=== PATIENT | male | born 1970 | race Caucasian/White ===

== ENCOUNTER 2016-12-07 11:42 | Emergency (ER) | payer OTHER ==
[~2016-12-07] VITALS: Ht 193 cm; Wt 153.3 kg
[2016-12-07] MEDS ORDERED: METF1000 PO (11:53)
[2016-12-07] MEDS ORDERED: IBUP80TA PO (11:53)
[2016-12-07] MEDS ORDERED: HYDR-3713 PO (11:53)
[2016-12-07] MEDS ORDERED: GLIP5TAB8 PO (11:53)
[2016-12-07] MEDS ORDERED: ONDANSETRON 4MG/2ML VIAL (J2405) IV ONE (12:45)
[2016-12-07] MEDS ORDERED: NS 1,000 ML IV ONE (12:45)
[2016-12-07] MEDS ORDERED: KETOROLAC 30 MG/ML VIAL (J1885) IV ONE (12:45)
[2016-12-07 13:11] LABS: BASO % 0.5 % (0.0-1.0); EOS # 0.1 K/mm3 (0.0-0.50); EOS % 1.6 % (0.0-3.0); LARGE UNSTAINED CELL # 0.1 K/mm3 (0.0-0.4); LARGE UNSTAINED CELL % 1.2 % (0.0-4.0); LYMPH # 1.4 K/mm3 (1.5-4.5); LYMPH % 25.3 % (24.0-44.0); MEAN CORPUSCULAR HEMOGLOBIN 30.2 pg (27.0-33.0); MEAN CORPUSCULAR HGB CONC 33.4 g/dl (32.0-36.5); MEAN CORPUSCULAR VOLUME 90.3 fl (80.0-96.0); MONO # 0.3 K/mm3 (0.0-0.8); MONO % 5.7 % (0.0-5.0); NEUTROPHILS # 3.7 K/mm3 (1.8-7.7); NEUTROPHILS % 65.6 % (36.0-66.0); PLATELET COUNT, AUTOMATED 212 k/mm3 (150-450); RED CELL DISTRIBUTION WIDTH 12.1 % (11.5-14.5); WHITE BLOOD COUNT 5.6 K/mm3 (4.0-10.0)
[2016-12-07 13:30] LABS: ALBUMIN 3.8 GM/DL (3.2-5.2); ALBUMIN/GLOBULIN RATIO 1.19 (1.00-1.93); ALKALINE PHOSPHATASE 51 U/L (45-117); ALT/SGPT 27 U/L (12-78); AMYLASE 33 U/L (25-115); ANION GAP 5 MEQ/L (8-16); AST/SGOT 11 U/L (15-37); BILIRUBIN,DIRECT 0.2 MG/DL (0.0-0.2); BILIRUBIN,TOTAL 0.6 MG/DL (0.2-1.0); BLOOD UREA NITROGEN 14 MG/DL (7-18); CALCIUM LEVEL 9.4 MG/DL (8.5-10.1); CARBON DIOXIDE LEVEL 30 MEQ/L (21-32); CHLORIDE LEVEL 104 MEQ/L (98-107); CREATININE FOR GFR 0.91 MG/DL (0.70-1.30); GLOMERULAR FILTRATION RATE > 60.0 (>60); GLUCOSE, FASTING 158 MG/DL (70-105); SODIUM LEVEL 139 MEQ/L (136-145)
[2016-12-07] MEDS ORDERED: ZOFR4TAB3 PO (14:46)
[2016-12-07 14:56] VITALS: BP 145/87
== END 2016-12-07 15:14 | disposition home or self-care (01) ==
LOC: M ED 13:03
DX: K80.70 Calculus of gallbladder and bile duct without cholecystitis without obstruction (principal); E11.9 Type 2 diabetes mellitus without complications; Z79.899 Other long term (current) drug therapy; Z79.84 Long term (current) use of oral hypoglycemic drugs

== ENCOUNTER 2016-12-09 12:21 | Emergency (ER) | payer OTHER ==
[~2016-12-09] VITALS: Ht 193 cm; Wt 155.1 kg
[~2016-12-09 12:21] MED LIST: GLIP5TAB8 PO; HYDR-3713 PO; IBUP80TA PO; METF1000 PO; ZOFR4TAB3 PO
[2016-12-09] MEDS ORDERED: ONDANSETRON 4 MG ORAL DISINTEGRATING TAB (S0181) PO ONE (13:00)
[2016-12-09] MEDS ORDERED: KETOROLAC 60 MG/2 ML VIAL (J1885) IM ONE (13:00)
[2016-12-09 13:25] LABS: BASO % 0.2 % (0.0-1.0); EOS # 0.1 K/mm3 (0.0-0.50); EOS % 1.8 % (0.0-3.0); LARGE UNSTAINED CELL # 0.1 K/mm3 (0.0-0.4); LARGE UNSTAINED CELL % 1.4 % (0.0-4.0); LYMPH # 1.4 K/mm3 (1.5-4.5); LYMPH % 23.8 % (24.0-44.0); MEAN CORPUSCULAR HEMOGLOBIN 30.2 pg (27.0-33.0); MEAN CORPUSCULAR HGB CONC 33.9 g/dl (32.0-36.5); MEAN CORPUSCULAR VOLUME 89.1 fl (80.0-96.0); MONO # 0.3 K/mm3 (0.0-0.8); MONO % 5.4 % (0.0-5.0); NEUTROPHILS # 4.1 K/mm3 (1.8-7.7); NEUTROPHILS % 67.3 % (36.0-66.0); PLATELET COUNT, AUTOMATED 239 k/mm3 (150-450); RED CELL DISTRIBUTION WIDTH 12.3 % (11.5-14.5)
[2016-12-09 13:47] LABS: ALBUMIN 3.8 GM/DL (3.2-5.2); ALBUMIN/GLOBULIN RATIO 1.31 (1.00-1.93); ALKALINE PHOSPHATASE 44 U/L (45-117); ALT/SGPT 30 U/L (12-78); AMYLASE 40 U/L (25-115); ANION GAP 8 MEQ/L (8-16); AST/SGOT 15 U/L (15-37); BILIRUBIN,DIRECT 0.1 MG/DL (0.0-0.2); BILIRUBIN,TOTAL 0.6 MG/DL (0.2-1.0); BLOOD UREA NITROGEN 11 MG/DL (7-18); CALCIUM LEVEL 9.2 MG/DL (8.5-10.1); CARBON DIOXIDE LEVEL 27 MEQ/L (21-32); CHLORIDE LEVEL 105 MEQ/L (98-107); CREATININE FOR GFR 0.76 MG/DL (0.70-1.30); GLOMERULAR FILTRATION RATE > 60.0 (>60); GLUCOSE, FASTING 120 MG/DL (70-105); POTASSIUM SERUM 3.9 MEQ/L (3.5-5.1); SODIUM LEVEL 140 MEQ/L (136-145); TOTAL PROTEIN 6.7 GM/DL (6.4-8.2)
--- NOTE | 2016-12-09 14:12 | REP ---
RIGHT UPPER QUADRANT SONOGRAPHY: HISTORY: Right upper quadrant pain. Comparison CT study December 04, 2016 from [facility]. There is also a right upper quadrant sonography from [facility] dated December 04, 2016. SONOGRAPHIC FINDINGS: Scanning through the right upper quadrant of the abdomen demonstrates tenderness to scanning over the gallbladder. The gallbladder is not well seen. Common bile duct is slightly dilated measuring 0.8 cm. The CBD measured 5 mm on December 04, 2016 . Gallbladder wall is not thickened. No pericholecystic fluid is seen. There is poor insonation of the liver consistent with diffuse fatty infiltration. No pancreatic abnormality is observed. No focal liver lesion is seen. There is no evidence of ascites or right renal abnormality. The right kidney measures 13.0 x 8.2 x 6.9 cm. IMPRESSION: 1. Gallbladder poorly seen. No stone seen by recent of ultrasound or CT at [facility] December 04, 2016. 2. Probable diffuse fatty infiltration of the liver. Signed by Sylvain Mcclure MD 12/09/2016 04:46 P
[2016-12-09] MEDS ORDERED: NS 500 ML IV ONE (14:15)
[2016-12-09] MEDS ORDERED: ISOVUE-370 76% 100ML VIAL (Q9967) As Ordered ONE (14:20)
--- NOTE | 2016-12-09 14:57 | REP ---
CT abdomen pelvis with IV contrast: Comparisons are 12/01/2016 and 12/04/2016. No bowel contrast is utilized. The visualized lung becker are unremarkable. The hepatic parenchyma is homogeneous unremarkable. The gallbladder, pancreas and spleen are normal size unremarkable. The adrenals are unremarkable. There is no hydronephrosis or renal calculus. No renal masses or cysts. The kidneys are unremarkable. There is no abdominal aortic aneurysm. The aorta is otherwise unremarkable. There is no retroperitoneal adenopathy or mass. There is no bowel distension or obstruction. There is mild questionable wall thickening of the descending colon compatible with colitis. This should be correlated with clinical findings. Pelvis: There is diverticulosis of the sigmoid colon. No CT evidence of diverticulitis. There is no ascites. No pelvic abscess. The bladder is unremarkable. The appendix has a normal appearance. Impression: Questionable wall thickening of the descending colon suggestive of colitis in the appropriate clinical setting. Diverticulosis without diverticulitis. Otherwise, essentially negative CT of the abdomen and pelvis. Signed by Jaleel Shipley MD 12/09/2016 02:48 P
[2016-12-09] MEDS ORDERED: ZOFR4TAB3 PO (15:03)
[2016-12-09] MEDS ORDERED: NORCOTAB PO (15:03)
[2016-12-09 15:15] VITALS: BP 126/69
--- NOTE | 2016-12-10 07:51 | ED PDOC ---
Post-Departure Follow-Up Radiology report faxed to Naomi Anand MD Dec 10, 2016 07:51
== END 2016-12-09 15:16 | disposition home or self-care (01) ==
LOC: M ED 12:43
DX: K80.70 Calculus of gallbladder and bile duct without cholecystitis without obstruction (principal); K57.30 Diverticulosis of large intestine without perforation or abscess without bleeding; R11.2 Nausea with vomiting, unspecified; R10.11 Right upper quadrant pain; E11.9 Type 2 diabetes mellitus without complications; Z79.899 Other long term (current) drug therapy

== ENCOUNTER 2017-06-04 09:20 | Day surgery (SDC) | payer OTHER ==
[~2017-06-04] VITALS: Ht 193 cm; Wt 153.7 kg
[~2017-06-04 09:20] MED LIST changes: +ACETAMINOPHEN 325 MG TAB PO PRN; +CYCLOPENTOLATE 2% OPHTH SOLN 2ML BTL OS ONE; +LIDOCAINE 3.5 % 1ML OPHTH TOPICAL GEL OU ONE; -METF1000 PO; +METF10004 PO; +NORCOTAB PO; +OFLOXACIN 0.3 % (OCUFLOX) OPTH SOL 5ML OS ONE; +PHENYLEPHRINE 2.5% OPHTH SOL 2ML OS ONE; +PROPARACAINE 0.5% OPHTH SOL 15ML OS PRN; +TROPICAMIDE 1% OPHTH SOLN 2ML OS ONE
[2017-06-04] MEDS ORDERED: HEALON DUET (HEALON 10MG/ML 0.55ML & HEALON ENDOCOAT 30MG/ML 0.85ML) As Ordered ONE ×2 (12:07→12:56)
[2017-06-04] MEDS ORDERED: CEFUROXIME 1MG/0.1ML INTRACAMERAL INJ As Ordered ONE (12:07)
[2017-06-04] MEDS ORDERED: ACETYLCHOLINE OPHTH SOLN 1% 2ML (MIOCHOL-E) As Ordered ONE ×2 (12:07→12:51)
[2017-06-04] MEDS ORDERED: BALANCED SALT IRRIGATION SOLUTION 500ML BAG (FOR OR EYE MACHINE) As Ordered ONE (12:07)
[2017-06-04] MEDS ORDERED: LIDOCAINE 1% SDV 5 ML VIAL As Ordered ONE (12:07)
[2017-06-04] MEDS ORDERED: POVIDONE-IODINE 5% OPHTH PREP SOL 30ML As Ordered ONE (12:07)
[2017-06-04] MEDS ORDERED: MIDAZOLAM INJ 2 MG/2 ML VIAL (J2250) As Ordered ONE (12:40)
[2017-06-04] MEDS ORDERED: fentaNYL 100 MCG/2 ML INJECTION (J3010) As Ordered ONE (12:40)
[2017-06-04 13:40] VITALS: BP 134/76
[2017-06-04] MEDS ORDERED: AcetaZOLAMIDE 500 MG ER CAP PO ONE (13:45)
[2017-06-04] MEDS ORDERED: KETOROLAC 0.5% OPHTH SOLN OS ONE (13:45)
[2017-06-04] MEDS ORDERED: TRIMETHOBENZAMIDE 300 MG CAP PO PRN (13:45)
--- NOTE | 2017-06-04 14:29 | RO ---
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 PROCEDURE: Phacoemulsification and posterior chamber intraocular lens implantation. The lens used was AU00T0, 16.0 diopter. SURGEON: Alejandra Duffy MD [employer]: ANESTHESIA: Topical with sedation. DESCRIPTION OF PROCEDURE: The patient was prepped and draped in the usual fashion. A lid speculum was placed between the lids. The eye was fixated. A stab incision was made to the anterior chamber, and 1% non-preserved lidocaine was instilled. Then, viscoelastic was instilled. The eye was re-fixated. A 2.75 mm sapphire keratome was used to make a clear corneal temporal limbal incision. Capsulorrhexis was begun with a 30-gauge bent needle and then carried out in a circular fashion with capsulorrhexis forceps. The lens was hydrodissected, and then the phacoemulsification unit was used to make a groove in the nucleus in two meridians. The nucleus was then cracked into four quadrants. Each quadrant was removed with the phacoemulsification unit. Any remaining cortex was removed with the irrigation and aspiration (I and A) unit. Capsular bag was refilled with viscoelastic. A posterior chamber intraocular lens was placed in the capsular bag without difficulty. Any remaining viscoelastic was removed with the I and A unit. The wound was hydrated, and Miochol and cefuroxime were instilled into the anterior chamber. The patient tolerated the procedure well and went to the recovery room in stable condition.
== END 2017-06-04 13:47 | disposition home or self-care (01) ==
LOC: M SDC 09:20
PROVIDERS: ATTEND Ophthalmology
DX: H25.11 Age-related nuclear cataract, right eye (principal); E11.9 Type 2 diabetes mellitus without complications; E78.5 Hyperlipidemia, unspecified; I10 Essential (primary) hypertension; Z79.899 Other long term (current) drug therapy

== ENCOUNTER 2021-10-01 06:15 | Inpatient (IN) | payer OTHER ==
[~2021-10-01] VITALS: Ht 193 cm; Wt 136.1 kg
[~2021-10-01 06:15] MED LIST changes: -ACETAMINOPHEN 325 MG TAB PO PRN; -CYCLOPENTOLATE 2% OPHTH SOLN 2ML BTL OS ONE; +HYDR-3715 PO; -LIDOCAINE 3.5 % 1ML OPHTH TOPICAL GEL OU ONE; -NORCOTAB PO; -OFLOXACIN 0.3 % (OCUFLOX) OPTH SOL 5ML OS ONE; -PHENYLEPHRINE 2.5% OPHTH SOL 2ML OS ONE; -PROPARACAINE 0.5% OPHTH SOL 15ML OS PRN; -TROPICAMIDE 1% OPHTH SOLN 2ML OS ONE; +ZOFR4TAB14 PO; -ZOFR4TAB3 PO
[2021-10-01] MEDS ORDERED: ASPIRIN 81 MG CHEW TABLET PO ONE (06:35)
[2021-10-01] MEDS ORDERED: PANTOPRAZOLE 40MG VIAL IV ONE (06:45)
[2021-10-01] MEDS ORDERED: ONDANSETRON 4MG/2ML VIAL IV ONE (06:45)
[2021-10-01 06:56] LABS: BASO # 0.1 10^3/uL (0.0-0.2); BASO % 0.6 % (0.0-1.0); EOS % 0.1 % (0.0-3.0); HEMATOCRIT 47.5 % (42.0-52.0); HEMOGLOBIN 16.5 g/dl (13.5-17.5); LYMPH # 1.1 10^3/uL (1.5-5.0); LYMPH % 10.4 % (24.0-44.0); MEAN CORPUSCULAR HEMOGLOBIN 29.2 pg (27.0-33.0); MEAN CORPUSCULAR HGB CONC 34.7 g/dl (32.0-36.5); MEAN CORPUSCULAR VOLUME 84.1 fl (80.0-96.0); MONO # 0.8 10^3/uL (0.0-0.8); MONO % 7.4 % (2.0-8.0); NEUTROPHILS # 8.3 10^3/uL (1.5-8.5); NEUTROPHILS % 80.9 % (36.0-66.0); PLATELET COUNT, AUTOMATED 296 10^3/uL (150-450); RED BLOOD COUNT 5.65 10^6/uL (4.30-6.10); WHITE BLOOD COUNT 10.3 10^3/uL (4.0-10.0)
[2021-10-01] MEDS ORDERED: NS 1,000 ML IV ONE ×2 (07:15→10:30)
[2021-10-01 07:29] LABS: CK-MB VALUE MASS < 1.0 NG/ML (<3.6); CPK CREATINE PHOSPHOKINASE 65 U/L (39-308); MB/CK RELATIVE INDEX 1.54 (< OR =4)
[2021-10-01 07:31] LABS: ALBUMIN 4.1 GM/DL (3.2-5.2); ALT/SGPT 857 U/L (12-78); BILIRUBIN,DIRECT 2.6 MG/DL (0.0-0.2); BILIRUBIN,TOTAL 3.4 MG/DL (0.2-1.0); BLOOD UREA NITROGEN 18 MG/DL (7-18); CALCIUM LEVEL 9.9 MG/DL (8.5-10.1); CARBON DIOXIDE LEVEL 25 MEQ/L (21-32); CHLORIDE LEVEL 92 MEQ/L (98-107); CREATININE FOR GFR 1.08 MG/DL (0.70-1.30); GLOMERULAR FILTRATION RATE > 60.0 (>56); GLUCOSE, FASTING 498 MG/DL (70-100); LIPASE 1211 U/L (73-393); NT-PRO BNP 40 PG/ML (<125); POTASSIUM SERUM 4.4 MEQ/L (3.5-5.1); SODIUM LEVEL 130 MEQ/L (136-145); TOTAL PROTEIN 7.9 GM/DL (6.4-8.2)
[2021-10-01 07:32] LABS: INR 0.95; PROTHROMBIN TIME 13.1 SECONDS (12.7-14.5)
[2021-10-01] MEDS: LORazepam 2 MG/ML VIAL IV STA ×2 (07:32→08:07)
[2021-10-01] MEDS ORDERED: ISOVUE-370 76% 100ML VIAL As Ordered ONE (07:45)
[2021-10-01 09:56] LABS: D-DIMER QUANT 520.86 ng/ml (<500)
[2021-10-01] MEDS ORDERED: LORazepam 2 MG/ML VIAL IV STA ×2 (10:29→13:38)
[2021-10-01] MEDS ORDERED: NS 1,000 ML IV SCH (15:30)
[2021-10-01] MEDS ORDERED: LEXA1TAB PO (16:07)
[2021-10-01] MEDS ORDERED: FURO40TA2 PO (16:07)
[2021-10-01] MEDS ORDERED: METF-838 PO (16:07)
[2021-10-01] MEDS ORDERED: DILT180C70 PO (16:07)
[2021-10-01] MEDS: NS 1,000 ML IV SCH ×2 (16:45→18:15)
[2021-10-01] MEDS ORDERED: PERCOCET 5MG/325MG TAB PO PRN (16:45)
[2021-10-01] MEDS ORDERED: ACETAMINOPHEN TAB 650MG DOSE (2X325MG) PO PRN (16:45)
[2021-10-01] MEDS ORDERED: traMADol 50 MG TAB PO PRN (16:45)
[2021-10-01] MEDS ORDERED: GLUCOSE 4GM CHEW TABLET PO PRN (16:50)
[2021-10-01] MEDS ORDERED: GLUCAGON INJ 1MG VIAL SC PRN (16:50)
[2021-10-01] MEDS ORDERED: DEXTROSE 50% 50 ML SYRINGE IV PRN (16:50)
[2021-10-01] MEDS: HumaLOG INSULIN (NovoLOG) PER UNIT SC SCH ×2 (18:00→23:50)
[2021-10-01] MEDS: PIPERACILLIN/TAZOBACTAM SOD 3.375 GM in D5W MINI-BAG PLUS 50 ML IV SCH ×2 (18:00→23:50)
[2021-10-01] MEDS ORDERED: HOME MED LIST COMPLETE! XX SCH (19:25)
[2021-10-01 21:00] VITALS: BP 126/81
[2021-10-02 04:58] VITALS: BP 143/98
[2021-10-02] MEDS: NS 1,000 ML IV SCH ×2 (05:30→12:34)
[2021-10-02] MEDS: PIPERACILLIN/TAZOBACTAM SOD 3.375 GM in D5W MINI-BAG PLUS 50 ML IV SCH ×3 (05:48→17:05)
[2021-10-02] MEDS ORDERED: PROCHLORPERAZINE 10MG/2ML VIAL (J0780 PER 1) IV PRN (05:55)
[2021-10-02 06:28] LABS: HEMATOCRIT 41.4 % (42.0-52.0); MEAN CORPUSCULAR HEMOGLOBIN 29.7 pg (27.0-33.0); MEAN CORPUSCULAR HGB CONC 33.6 g/dl (32.0-36.5); MEAN CORPUSCULAR VOLUME 88.5 fl (80.0-96.0); PLATELET COUNT, AUTOMATED 234 10^3/uL (150-450); RED BLOOD COUNT 4.68 10^6/uL (4.30-6.10); WHITE BLOOD COUNT 7.1 10^3/uL (4.0-10.0)
[2021-10-02] MEDS: HumaLOG INSULIN (NovoLOG) PER UNIT SC SCH ×3 (06:39→17:05)
[2021-10-02 06:45] LABS: HEMOGLOBIN 13.9 g/dl (13.5-17.5)
[2021-10-02 07:02] LABS: ALBUMIN 3.3 GM/DL (3.2-5.2); ALT/SGPT 502 U/L (12-78); BILIRUBIN,DIRECT 0.3 MG/DL (0.0-0.2); BILIRUBIN,TOTAL 0.9 MG/DL (0.2-1.0); BLOOD UREA NITROGEN 22 MG/DL (7-18); CALCIUM LEVEL 8.2 MG/DL (8.5-10.1); CARBON DIOXIDE LEVEL 30 MEQ/L (21-32); CHLORIDE LEVEL 99 MEQ/L (98-107); CREATININE FOR GFR 0.79 MG/DL (0.70-1.30); GLOMERULAR FILTRATION RATE > 60.0 (>56); GLUCOSE, FASTING 266 MG/DL (70-100); LIPASE 130 U/L (73-393); POTASSIUM SERUM 3.7 MEQ/L (3.5-5.1); SODIUM LEVEL 133 MEQ/L (136-145); TOTAL PROTEIN 6.7 GM/DL (6.4-8.2)
[2021-10-02] MEDS: diltiaZEM **CD** 180 MG CAP PO SCH (08:38)
[2021-10-02] MEDS: ESCITALOPRAM OXALATE 10 MG TAB (LEXAPRO) PO SCH (08:38)
[2021-10-02 14:00] VITALS: BP 129/83
[2021-10-02 18:00] VITALS: BP 124/68
[2021-10-02] MEDS ORDERED: HumaLOG INSULIN (NovoLOG) PER UNIT SC SCH (21:00)
[2021-10-03] MEDS: PIPERACILLIN/TAZOBACTAM SOD 3.375 GM in D5W MINI-BAG PLUS 50 ML IV SCH ×3 (00:18→12:02)
[2021-10-03 06:19] LABS: HEMATOCRIT 41.8 % (42.0-52.0); HEMOGLOBIN 13.8 g/dl (13.5-17.5); MEAN CORPUSCULAR HEMOGLOBIN 29.6 pg (27.0-33.0); MEAN CORPUSCULAR VOLUME 89.5 fl (80.0-96.0); PLATELET COUNT, AUTOMATED 216 10^3/uL (150-450); RED BLOOD COUNT 4.67 10^6/uL (4.30-6.10); WHITE BLOOD COUNT 5.9 10^3/uL (4.0-10.0)
[2021-10-03 06:49] LABS: ALBUMIN 3.1 GM/DL (3.2-5.2); ALT/SGPT 321 U/L (12-78); BILIRUBIN,DIRECT 0.3 MG/DL (0.0-0.2); BILIRUBIN,TOTAL 0.8 MG/DL (0.2-1.0); BLOOD UREA NITROGEN 14 MG/DL (7-18); CALCIUM LEVEL 8.3 MG/DL (8.5-10.1); CARBON DIOXIDE LEVEL 28 MEQ/L (21-32); CHLORIDE LEVEL 99 MEQ/L (98-107); CREATININE FOR GFR 0.69 MG/DL (0.70-1.30); GLOMERULAR FILTRATION RATE > 60.0 (>56); GLUCOSE, FASTING 273 MG/DL (70-100); LIPASE 107 U/L (73-393); POTASSIUM SERUM 3.9 MEQ/L (3.5-5.1); SODIUM LEVEL 135 MEQ/L (136-145); TOTAL PROTEIN 6.2 GM/DL (6.4-8.2)
[2021-10-03 08:34] VITALS: BP 129/76
[2021-10-03] MEDS: ESCITALOPRAM OXALATE 10 MG TAB (LEXAPRO) PO SCH (08:34)
[2021-10-03] MEDS: diltiaZEM **CD** 180 MG CAP PO SCH (08:34)
[2021-10-03] MEDS: HumaLOG INSULIN (NovoLOG) PER UNIT SC SCH ×2 (08:35→12:02)
== END 2021-10-03 14:52 | disposition home or self-care (01) | DRG 282 ==
LOC: M ED 06:15 → M ED INP 16:38 → ENRESERV 20:24 → M MSPAV 21:20
PROVIDERS: ADMIT Internal Medicine; ATTEND Family Medicine
DX: K85.10 Biliary acute pancreatitis without necrosis or infection (principal); I48.0 Paroxysmal atrial fibrillation; E11.9 Type 2 diabetes mellitus without complications; E78.5 Hyperlipidemia, unspecified; Z98.42 Cataract extraction status, left eye; Z87.891 Personal history of nicotine dependence; R74.01 Elevation of levels of liver transaminase levels; Z79.84 Long term (current) use of oral hypoglycemic drugs; Z79.899 Other long term (current) drug therapy; Z20.822 Contact with and (suspected) exposure to COVID-19

== ENCOUNTER 2022-02-07 22:39 | Inpatient (IN) | payer OTHER ==
[~2022-02-07] VITALS: Ht 193 cm; Wt 135.7 kg
[~2022-02-07 22:39] MED LIST changes: +DILT180C70 PO; +FURO40TA2 PO; +LEXA1TAB PO; +METF-838 PO
[2022-02-07] MEDS ORDERED: NS 1,000 ML IV ONE (23:25)
[2022-02-07 23:35] LABS: VENOUS BASE EXCESS -26.2 (-2.0-2.0); VENOUS HCO3 4.8 MEQ/L (23.0-27.0); VENOUS O2 SATURATION 87.5 % (60.0-80.0); VENOUS PARTIAL PRESSURE CO2 22.3 mmHg (38.0-50.0); VENOUS PARTIAL PRESSURE O2 61.3 mmHg (30.0-50.0); VENOUS PH 6.952 UNITS (7.330-7.430); VENOUS STANDARD HCO3 7.3 MEQ/L; VENOUS TOTAL CO2 5.5 MEQ/L (24.0-28.0)
[2022-02-07] MEDS ORDERED: INSULIN IV RATE CHANGE DOCUMENTATION ML/HR XX SCH (23:45)
[2022-02-07] MEDS ORDERED: HumuLIN R (REGULAR) INSULIN (NovoLIN R) **100U/ML** PER UNIT IV ONE (23:45)
[2022-02-07] MEDS ORDERED: INSULIN REGULAR IN 0.9 % NACL 100 UNIT in IV 1 EA IV SCH ×2 (23:45)
[2022-02-07 23:48] LABS: OSMOLALITY SERUM 344 MOSM/KG (275-295)
[2022-02-08] VITALS (16 sets, daily range): BP systolic 104–139; BP diastolic 54–92
[2022-02-08] LABS: HEMOGLOBIN A1c 11.5 %
[2022-02-08 00:02] LABS: BASO # 0.1 10^3/uL (0.0-0.2); BASO % 0.3 % (0.0-1.0); HEMOGLOBIN 15.8 g/dl (13.5-17.5); LYMPH # 1.1 10^3/uL (1.5-5.0); LYMPH % 4.2 % (24.0-44.0); MEAN CORPUSCULAR HEMOGLOBIN 29.7 pg (27.0-33.0); MEAN CORPUSCULAR HGB CONC 32.2 g/dl (32.0-36.5); MEAN CORPUSCULAR VOLUME 92.1 fl (80.0-96.0); MONO % 9.8 % (2.0-8.0); NEUTROPHILS # 21.2 10^3/uL (1.5-8.5); NEUTROPHILS % 82.6 % (36.0-66.0); PLATELET COUNT, AUTOMATED 362 10^3/uL (150-450); RED BLOOD COUNT 5.32 10^6/uL (4.30-6.10); WHITE BLOOD COUNT 25.7 10^3/uL (4.0-10.0)
[2022-02-08 00:06] LABS: ABG BASE EXCESS -24.8 (-2.0-2.0); ABG HCO3 3.8 MEQ/L (22.0-26.0); ABG O2 SATURATION 98.2 % (95.0-99.0); ABG PARTIAL PRESSURE O2 134.4 mmHg (75.0-100.0); ABG TOTAL CO2 4.3 MEQ/L (22.0-29.0)
[2022-02-08 00:09] LABS: ABG PARTIAL PRESSURE CO2 14.4 mmHg (35.0-45.0); ABG pH (ARTERIAL) 7.041 UNITS (7.350-7.450)
[2022-02-08 00:17] LABS: ACETONE/KETONE > 46.00 MG/DL (<2.81); ALBUMIN 3.7 GM/DL (3.2-5.2); ALT/SGPT 23 U/L (12-78); BILIRUBIN,DIRECT 0.2 MG/DL (0.0-0.2); BILIRUBIN,TOTAL 0.7 MG/DL (0.2-1.0); BLOOD UREA NITROGEN 62 MG/DL (7-18); CALCIUM LEVEL 9.4 MG/DL (8.5-10.1); CARBON DIOXIDE LEVEL 6 MEQ/L (21-32); CHLORIDE LEVEL 87 MEQ/L (98-107); CREATININE FOR GFR 2.71 MG/DL (0.70-1.30); GLOMERULAR FILTRATION RATE 26.5 (>56); GLUCOSE, FASTING 764 MG/DL (70-100); LIPASE 1241 U/L (73-393); POTASSIUM SERUM 5.5 MEQ/L (3.5-5.1); SODIUM LEVEL 123 MEQ/L (136-145); TOTAL PROTEIN 7.1 GM/DL (6.4-8.2)
[2022-02-08] MEDS ORDERED: NS IV ONE (00:25)
[2022-02-08 00:26] LABS: CK-MB VALUE MASS 2.8 NG/ML (<3.6); MB/CK RELATIVE INDEX 3.84 (< OR =4)
[2022-02-08 01:02] LABS: MONO # 2.5 10^3/uL (0.0-0.8)
[2022-02-08 01:56] LABS: RSV AMPLIFICATION NEGATIVE (NEGATIVE)
[2022-02-08] MEDS ORDERED: NS 1,000 ML IV SCH (02:00)
[2022-02-08 02:20] LABS: CALCIUM LEVEL 8.8 MG/DL (8.5-10.1); CREATININE FOR GFR 2.48 MG/DL (0.70-1.30); GLOMERULAR FILTRATION RATE 29.4 (>56); POTASSIUM SERUM 4.5 MEQ/L (3.5-5.1)
[2022-02-08] MEDS: INSULIN IV RATE CHANGE DOCUMENTATION ML/HR XX SCH ×6 (02:27→11:59)
[2022-02-08] MEDS ORDERED: SODIUM BICARBONATE 8.4% INJ 50 ML SYRINGE IV ONE (02:30)
[2022-02-08] MEDS: INSULIN REGULAR IN 0.9 % NACL 100 UNIT in IV 1 EA IV SCH ×10 (04:11→11:59)
[2022-02-08 04:43] LABS: CALCIUM LEVEL 8.7 MG/DL (8.5-10.1); CREATININE FOR GFR 2.12 MG/DL (0.70-1.30); GLOMERULAR FILTRATION RATE 35.2 (>56); PHOSPHORUS LEVEL 2.7 MG/DL (2.5-4.9); POTASSIUM SERUM 4.1 MEQ/L (3.5-5.1)
[2022-02-08] MEDS ORDERED: D5W/0.9% SODIUM CHLORIDE 1,000 ML IV SCH (06:25)
[2022-02-08 06:29] LABS: CALCIUM LEVEL 9.4 MG/DL (8.5-10.1); CREATININE FOR GFR 2.07 MG/DL (0.70-1.30); GLOMERULAR FILTRATION RATE 36.2 (>56); PHOSPHORUS LEVEL 2.6 MG/DL (2.5-4.9); POTASSIUM SERUM 4.3 MEQ/L (3.5-5.1)
[2022-02-08] MEDS ORDERED: ROSU10TA6 PO (06:39)
[2022-02-08] MEDS ORDERED: STEG5TAB PO (06:39)
[2022-02-08] MEDS ORDERED: AMIO200T49 PO (06:39)
[2022-02-08] MEDS ORDERED: MAGN400T2 PO (06:39)
[2022-02-08] MEDS ORDERED: TRUL0.5I SC (06:39)
[2022-02-08] MEDS ORDERED: ELIQ5TAB PO (06:39)
[2022-02-08] MEDS ORDERED: PANT40TA29 PO (06:39)
[2022-02-08] MEDS ORDERED: POTA-150 PO (06:39)
[2022-02-08] MEDS ORDERED: HOME MED LIST COMPLETE! XX SCH (06:40)
[2022-02-08 08:23] LABS: CALCIUM LEVEL 9.3 MG/DL (8.5-10.1); CREATININE FOR GFR 1.95 MG/DL (0.70-1.30); GLOMERULAR FILTRATION RATE 38.8 (>56); PHOSPHORUS LEVEL 2.1 MG/DL (2.5-4.9); POTASSIUM SERUM 4.2 MEQ/L (3.5-5.1)
[2022-02-08] MEDS: PANTOPRAZOLE 40MG VIAL IV SCH (09:11)
[2022-02-08] MEDS: ESCITALOPRAM OXALATE 10 MG TAB (LEXAPRO) PO SCH (09:11)
[2022-02-08] MEDS: HEPARIN SOD (PORCINE) 5000UNITS/ML 1ML VIAL/SYRINGE SQ SCH ×3 (09:12→21:20)
[2022-02-08] MEDS ORDERED: ONDANSETRON 4MG 2ML VIAL IV SCH (12:00)
[2022-02-08 12:30] LABS: CALCIUM LEVEL 9.2 MG/DL (8.5-10.1); CREATININE FOR GFR 1.64 MG/DL (0.70-1.30); GLOMERULAR FILTRATION RATE 47.4 (>56); POTASSIUM SERUM 3.8 MEQ/L (3.5-5.1)
[2022-02-08] MEDS: ONDANSETRON 4MG 2ML VIAL IV PRN (12:47)
[2022-02-08] MEDS ORDERED: METOPROLOL 5 MG/5 ML VIAL IV STA (13:55)
[2022-02-08 16:21] LABS: CALCIUM LEVEL 8.8 MG/DL (8.5-10.1); CREATININE FOR GFR 1.42 MG/DL (0.70-1.30)
[2022-02-08] MEDS: LEVEMIR (INSULIN DETEMIR) 1 UNITS/0.01ML SC SCH (17:12)
[2022-02-08 19:54] LABS: CALCIUM LEVEL 8.9 MG/DL (8.5-10.1); CREATININE FOR GFR 1.35 MG/DL (0.70-1.30); GLOMERULAR FILTRATION RATE 59.3 (>56); POTASSIUM SERUM 4.3 MEQ/L (3.5-5.1)
[2022-02-08] MEDS ORDERED: ACETAMINOPHEN TAB 650MG DOSE (2X325MG) PO ONE (20:45)
[2022-02-08] MEDS: AMIODARONE 200 MG TAB (PACERONE) PO SCH (21:15)
[2022-02-09] VITALS: BP 136/68
[2022-02-09 00:23] LABS: CALCIUM LEVEL 8.7 MG/DL (8.5-10.1); CREATININE FOR GFR 1.34 MG/DL (0.70-1.30); GLOMERULAR FILTRATION RATE 59.8 (>56); POTASSIUM SERUM 4.2 MEQ/L (3.5-5.1)
[2022-02-09] MEDS ORDERED: GLUCOSE 4GM CHEW TABLET PO PRN (00:45)
[2022-02-09] MEDS ORDERED: GLUCAGON INJ 1MG VIAL SC PRN (00:45)
[2022-02-09] MEDS ORDERED: DEXTROSE 50% 50 ML SYRINGE IV PRN (00:45)
[2022-02-09] MEDS: INSULIN LISPRO (NovoLOG) PER UNIT SC SCH ×4 (01:04→16:36)
[2022-02-09 04:00] VITALS: BP 122/58
[2022-02-09] MEDS: HEPARIN SOD (PORCINE) 5000UNITS/ML 1ML VIAL/SYRINGE SQ SCH (06:32)
[2022-02-09 06:38] LABS: HEMATOCRIT 41.5 % (42.0-52.0); HEMOGLOBIN 14.4 g/dl (13.5-17.5); MEAN CORPUSCULAR HEMOGLOBIN 30.3 pg (27.0-33.0); MEAN CORPUSCULAR HGB CONC 34.7 g/dl (32.0-36.5); MEAN CORPUSCULAR VOLUME 87.2 fl (80.0-96.0); PLATELET COUNT, AUTOMATED 225 10^3/uL (150-450); RED BLOOD COUNT 4.76 10^6/uL (4.30-6.10); WHITE BLOOD COUNT 11.2 10^3/uL (4.0-10.0)
[2022-02-09 07:35] LABS: ALBUMIN 3.2 GM/DL (3.2-5.2); ALT/SGPT 19 U/L (12-78); BILIRUBIN,TOTAL 0.5 MG/DL (0.2-1.0); BLOOD UREA NITROGEN 33 MG/DL (7-18); CALCIUM LEVEL 8.8 MG/DL (8.5-10.1); CARBON DIOXIDE LEVEL 17 MEQ/L (21-32); CHLORIDE LEVEL 103 MEQ/L (98-107); CREATININE FOR GFR 1.25 MG/DL (0.70-1.30); GLOMERULAR FILTRATION RATE > 60.0 (>56); GLUCOSE, FASTING 211 MG/DL (70-100); SODIUM LEVEL 136 MEQ/L (136-145); TOTAL PROTEIN 6.6 GM/DL (6.4-8.2)
[2022-02-09 08:00] VITALS: BP 124/64
[2022-02-09] MEDS: PANTOPRAZOLE 40MG VIAL IV SCH (08:08)
[2022-02-09] MEDS: ONDANSETRON 4MG 2ML VIAL IV PRN ×3 (08:08→19:23)
[2022-02-09] MEDS: AMIODARONE 200 MG TAB (PACERONE) PO SCH ×2 (08:09→20:38)
[2022-02-09] MEDS: ESCITALOPRAM OXALATE 10 MG TAB (LEXAPRO) PO SCH (08:09)
[2022-02-09] MEDS: ACETAMINOPHEN TAB 650MG DOSE (2X325MG) PO PRN (11:10)
[2022-02-09] MEDS: METOCLOPRAMIDE INJ 10MG/2ML VIAL (J2765 PER 1) IV PRN (11:10)
[2022-02-09 12:01] VITALS: BP 134/66
[2022-02-09 16:02] VITALS: BP 134/66
[2022-02-09 20:00] VITALS: BP 144/82
[2022-02-09] MEDS: APIXABAN 5 MG TAB (ELIQUIS) PO SCH (20:38)
[2022-02-09] MEDS: LEVEMIR (INSULIN DETEMIR) 1 UNITS/0.01ML SC SCH (20:39)
[2022-02-09] MEDS ORDERED: INSULIN LISPRO (NovoLOG) PER UNIT SC SCH (21:00)
[2022-02-10] VITALS (9 sets, daily range): BP systolic 109–120; BP diastolic 56–81
[2022-02-10] MEDS ORDERED: DIGOXIN INJ 0.5 MG/2 ML AMP (J1160) IV STA (05:48)
[2022-02-10] MEDS ORDERED: NS 500 ML IV ONE (05:50)
[2022-02-10 06:28] LABS: HEMOGLOBIN 14.7 g/dl (13.5-17.5); MEAN CORPUSCULAR HEMOGLOBIN 29.8 pg (27.0-33.0); MEAN CORPUSCULAR HGB CONC 33.4 g/dl (32.0-36.5); MEAN CORPUSCULAR VOLUME 89.2 fl (80.0-96.0); PLATELET COUNT, AUTOMATED 194 10^3/uL (150-450); RED BLOOD COUNT 4.93 10^6/uL (4.30-6.10); WHITE BLOOD COUNT 7.7 10^3/uL (4.0-10.0)
[2022-02-10 06:58] LABS: ALBUMIN 3.3 GM/DL (3.2-5.2); ALT/SGPT 19 U/L (12-78); BILIRUBIN,TOTAL 0.7 MG/DL (0.2-1.0); BLOOD UREA NITROGEN 23 MG/DL (7-18); CALCIUM LEVEL 8.7 MG/DL (8.5-10.1); CARBON DIOXIDE LEVEL 13 MEQ/L (21-32); CHLORIDE LEVEL 102 MEQ/L (98-107); CREATININE FOR GFR 1.18 MG/DL (0.70-1.30); GLOMERULAR FILTRATION RATE > 60.0 (>56); GLUCOSE, FASTING 205 MG/DL (70-100); SODIUM LEVEL 134 MEQ/L (136-145); TOTAL PROTEIN 6.9 GM/DL (6.4-8.2)
[2022-02-10 08:15] LABS: ABG BASE EXCESS -16.5 (-2.0-2.0); ABG HCO3 9.6 MEQ/L (22.0-26.0); ABG O2 SATURATION 97.5 % (95.0-99.0); ABG PARTIAL PRESSURE O2 98.8 mmHg (75.0-100.0); ABG STANDARD HCO3 12.4 MEQ/L (22.0-26.0); ABG TOTAL CO2 10.4 MEQ/L (22.0-29.0)
[2022-02-10 08:16] LABS: ABG pH (ARTERIAL) 7.204 UNITS (7.350-7.450)
[2022-02-10 08:37] LABS: ACETONE/KETONE > 46.00 MG/DL (<2.81); LIPASE 410 U/L (73-393)
[2022-02-10] MEDS: PANTOPRAZOLE 40MG VIAL IV SCH (08:48)
[2022-02-10] MEDS: ESCITALOPRAM OXALATE 10 MG TAB (LEXAPRO) PO SCH (08:49)
[2022-02-10] MEDS: APIXABAN 5 MG TAB (ELIQUIS) PO SCH ×2 (08:49→20:29)
[2022-02-10] MEDS: AMIODARONE 200 MG TAB (PACERONE) PO SCH ×2 (08:49→20:29)
[2022-02-10] MEDS ORDERED: INSULIN REGULAR IN 0.9 % NACL 100 UNIT in IV 1 EA IV SCH ×2 (09:05)
[2022-02-10] MEDS ORDERED: D5W/0.45% SODIUM CHLORIDE 1,000 ML IV SCH (09:10)
[2022-02-10] MEDS ORDERED: METOPROLOL 5 MG/5 ML VIAL IV STA (09:13)
[2022-02-10 10:31] LABS: OSMOLALITY SERUM 289 MOSM/KG (275-295)
[2022-02-10 10:35] LABS: BILIRUBIN, URINE MANUAL NEGATIVE (NEGATIVE); GLUCOSE, URINE (UA) MANUAL 4+(1000 MG/DL) mg/dL (NEGATIVE); KETONE, URINE MANUAL 3+ mg/dL (NEGATIVE); UROBILINOGEN, URINE MANUAL NORMAL (NORMAL)
[2022-02-10] MEDS: METOCLOPRAMIDE INJ 10MG/2ML VIAL (J2765 PER 1) IV PRN ×2 (10:46→18:26)
[2022-02-10 11:02] LABS: CK-MB VALUE MASS 1.6 NG/ML (<3.6); MB/CK RELATIVE INDEX 2.25 (< OR =4)
[2022-02-10 11:10] LABS: BLOOD UREA NITROGEN 27 MG/DL (7-18); CALCIUM LEVEL 8.2 MG/DL (8.5-10.1); CARBON DIOXIDE LEVEL 27 MEQ/L (21-32); CHLORIDE LEVEL 95 MEQ/L (98-107); CREATININE FOR GFR 0.99 MG/DL (0.70-1.30); FREE THYROXINE INDEX 1.8 % (1.4-3.8); GLOMERULAR FILTRATION RATE > 60.0 (>56); GLUCOSE, FASTING 259 MG/DL (70-100); POTASSIUM SERUM 4.5 MEQ/L (3.5-5.1); SODIUM LEVEL 129 MEQ/L (136-145); T UPTAKE 35 % (33-40)
[2022-02-10 11:47] LABS: BLOOD UREA NITROGEN 23 MG/DL (7-18); CALCIUM LEVEL 8.5 MG/DL (8.5-10.1); CARBON DIOXIDE LEVEL 11 MEQ/L (21-32); CHLORIDE LEVEL 101 MEQ/L (98-107); CREATININE FOR GFR 1.28 MG/DL (0.70-1.30); GLOMERULAR FILTRATION RATE > 60.0 (>56); GLUCOSE, FASTING 198 MG/DL (70-100); POTASSIUM SERUM 3.8 MEQ/L (3.5-5.1); SODIUM LEVEL 134 MEQ/L (136-145)
[2022-02-10] MEDS: INSULIN IV RATE CHANGE DOCUMENTATION ML/HR XX SCH ×4 (12:02→16:06)
[2022-02-10] MEDS ORDERED: KCL 20MEQ IN D5/0.45NS 1000ML 1,000 ML IV SCH (12:35)
[2022-02-10] MEDS: METOPROLOL TART 25 MG TABLET PO SCH ×2 (12:48→18:28)
[2022-02-10 13:51] LABS: BLOOD UREA NITROGEN 22 MG/DL (7-18); CALCIUM LEVEL 8.3 MG/DL (8.5-10.1); CARBON DIOXIDE LEVEL 12 MEQ/L (21-32); CHLORIDE LEVEL 102 MEQ/L (98-107); CREATININE FOR GFR 1.22 MG/DL (0.70-1.30); GLOMERULAR FILTRATION RATE > 60.0 (>56); GLUCOSE, FASTING 177 MG/DL (70-100); SODIUM LEVEL 134 MEQ/L (136-145)
[2022-02-10 15:37] LABS: BLOOD UREA NITROGEN 21 MG/DL (7-18); CALCIUM LEVEL 8.3 MG/DL (8.5-10.1); CARBON DIOXIDE LEVEL 16 MEQ/L (21-32); CHLORIDE LEVEL 102 MEQ/L (98-107); CREATININE FOR GFR 1.25 MG/DL (0.70-1.30); GLOMERULAR FILTRATION RATE > 60.0 (>56); GLUCOSE, FASTING 165 MG/DL (70-100); POTASSIUM SERUM 3.9 MEQ/L (3.5-5.1); SODIUM LEVEL 133 MEQ/L (136-145)
[2022-02-10 17:38] LABS: BLOOD UREA NITROGEN 21 MG/DL (7-18); CALCIUM LEVEL 8.4 MG/DL (8.5-10.1); CARBON DIOXIDE LEVEL 18 MEQ/L (21-32); CHLORIDE LEVEL 103 MEQ/L (98-107); CREATININE FOR GFR 1.21 MG/DL (0.70-1.30); GLOMERULAR FILTRATION RATE > 60.0 (>56); GLUCOSE, FASTING 157 MG/DL (70-100); SODIUM LEVEL 134 MEQ/L (136-145)
[2022-02-10] MEDS: LEVEMIR (INSULIN DETEMIR) 1 UNITS/0.01ML SC SCH (18:26)
[2022-02-10 19:31] LABS: BLOOD UREA NITROGEN 20 MG/DL (7-18); CALCIUM LEVEL 8.3 MG/DL (8.5-10.1); CARBON DIOXIDE LEVEL 17 MEQ/L (21-32); CHLORIDE LEVEL 103 MEQ/L (98-107); CREATININE FOR GFR 1.23 MG/DL (0.70-1.30); GLOMERULAR FILTRATION RATE > 60.0 (>56); GLUCOSE, FASTING 167 MG/DL (70-100); POTASSIUM SERUM 4.1 MEQ/L (3.5-5.1); SODIUM LEVEL 134 MEQ/L (136-145)
[2022-02-10] MEDS: NS 1,000 ML IV SCH (21:52)
[2022-02-10 22:27] LABS: BLOOD UREA NITROGEN 19 MG/DL (7-18); CALCIUM LEVEL 8.3 MG/DL (8.5-10.1); CARBON DIOXIDE LEVEL 16 MEQ/L (21-32); CHLORIDE LEVEL 103 MEQ/L (98-107); CREATININE FOR GFR 1.19 MG/DL (0.70-1.30); GLOMERULAR FILTRATION RATE > 60.0 (>56); GLUCOSE, FASTING 208 MG/DL (70-100); POTASSIUM SERUM 4.3 MEQ/L (3.5-5.1); SODIUM LEVEL 134 MEQ/L (136-145)
[2022-02-10] MEDS: INSULIN LISPRO (NovoLOG) PER UNIT SC SCH (23:49)
[2022-02-11] VITALS: BP 106/56
[2022-02-11] MEDS: METOCLOPRAMIDE INJ 10MG/2ML VIAL (J2765 PER 1) IV PRN ×2 (00:36→06:16)
[2022-02-11] MEDS: METOPROLOL TART 25 MG TABLET PO SCH ×4 (00:36→18:25)
[2022-02-11 01:59] LABS: BLOOD UREA NITROGEN 19 MG/DL (7-18); CALCIUM LEVEL 8.2 MG/DL (8.5-10.1); CARBON DIOXIDE LEVEL 13 MEQ/L (21-32); CHLORIDE LEVEL 102 MEQ/L (98-107); GLOMERULAR FILTRATION RATE > 60.0 (>56); GLUCOSE, FASTING 193 MG/DL (70-100); SODIUM LEVEL 132 MEQ/L (136-145)
[2022-02-11] MEDS: ONDANSETRON 4MG 2ML VIAL IV PRN ×3 (03:01→20:15)
[2022-02-11 05:30] LABS: HEMATOCRIT 45.5 % (42.0-52.0); HEMOGLOBIN 15.2 g/dl (13.5-17.5); MEAN CORPUSCULAR HEMOGLOBIN 29.2 pg (27.0-33.0); MEAN CORPUSCULAR HGB CONC 33.4 g/dl (32.0-36.5); MEAN CORPUSCULAR VOLUME 87.5 fl (80.0-96.0); PLATELET COUNT, AUTOMATED 203 10^3/uL (150-450); WHITE BLOOD COUNT 7.9 10^3/uL (4.0-10.0)
[2022-02-11 06:00] VITALS: BP 98/58
[2022-02-11 06:03] LABS: ALBUMIN 2.9 GM/DL (3.2-5.2); ALT/SGPT 20 U/L (12-78); BILIRUBIN,TOTAL 0.7 MG/DL (0.2-1.0); BLOOD UREA NITROGEN 18 MG/DL (7-18); CALCIUM LEVEL 8.2 MG/DL (8.5-10.1); CARBON DIOXIDE LEVEL 15 MEQ/L (21-32); CHLORIDE LEVEL 102 MEQ/L (98-107); CREATININE FOR GFR 1.15 MG/DL (0.70-1.30); GLOMERULAR FILTRATION RATE > 60.0 (>56); GLUCOSE, FASTING 181 MG/DL (70-100); POTASSIUM SERUM 3.8 MEQ/L (3.5-5.1); SODIUM LEVEL 132 MEQ/L (136-145); TOTAL PROTEIN 6.3 GM/DL (6.4-8.2)
[2022-02-11] MEDS: INSULIN LISPRO (NovoLOG) PER UNIT SC SCH ×4 (06:12→23:11)
[2022-02-11] MEDS: APIXABAN 5 MG TAB (ELIQUIS) PO SCH ×2 (08:07→20:15)
[2022-02-11] MEDS: NS 1,000 ML IV SCH ×2 (08:07→18:26)
[2022-02-11] MEDS: AMIODARONE 200 MG TAB (PACERONE) PO SCH ×2 (08:07→20:15)
[2022-02-11] MEDS: ESCITALOPRAM OXALATE 10 MG TAB (LEXAPRO) PO SCH (08:08)
[2022-02-11] MEDS: PANTOPRAZOLE 40MG VIAL IV SCH (08:08)
[2022-02-11 08:12] VITALS: BP 97/54
[2022-02-11] MEDS ORDERED: LEVEMIR (INSULIN DETEMIR) 1 UNITS/0.01ML SC SCH (09:00)
[2022-02-11 10:21] VITALS: BP 133/71
[2022-02-11 12:00] VITALS: BP 107/62
[2022-02-11 14:16] LABS: BLOOD UREA NITROGEN 17 MG/DL (7-18); CALCIUM LEVEL 8.4 MG/DL (8.5-10.1); CARBON DIOXIDE LEVEL 16 MEQ/L (21-32); CHLORIDE LEVEL 103 MEQ/L (98-107); CREATININE FOR GFR 1.11 MG/DL (0.70-1.30); GLOMERULAR FILTRATION RATE > 60.0 (>56); GLUCOSE, FASTING 152 MG/DL (70-100); POTASSIUM SERUM 3.7 MEQ/L (3.5-5.1); SODIUM LEVEL 135 MEQ/L (136-145)
[2022-02-11 20:00] VITALS: BP_SYST 100; BP_SYST 120; BP_DIAS 62; BP_DIAS 66
[2022-02-11] MEDS: LEVEMIR (INSULIN DETEMIR) 1 UNITS/0.01ML SC SCH (20:15)
[2022-02-11 20:50] LABS: BLOOD UREA NITROGEN 16 MG/DL (7-18); CALCIUM LEVEL 8.1 MG/DL (8.5-10.1); CARBON DIOXIDE LEVEL 19 MEQ/L (21-32); CHLORIDE LEVEL 103 MEQ/L (98-107); CREATININE FOR GFR 1.09 MG/DL (0.70-1.30); GLOMERULAR FILTRATION RATE > 60.0 (>56); GLUCOSE, FASTING 177 MG/DL (70-100); POTASSIUM SERUM 3.9 MEQ/L (3.5-5.1); SODIUM LEVEL 136 MEQ/L (136-145)
[2022-02-11] MEDS: ACETAMINOPHEN TAB 650MG DOSE (2X325MG) PO PRN (22:54)
[2022-02-12] VITALS (8 sets, daily range): BP systolic 92–111; BP diastolic 51–66
[2022-02-12] MEDS: METOPROLOL TART 25 MG TABLET PO SCH ×2 (00:14→06:10)
[2022-02-12] MEDS: INSULIN LISPRO (NovoLOG) PER UNIT SC SCH ×4 (05:07→23:21)
[2022-02-12] MEDS: NS 1,000 ML IV SCH (06:10)
[2022-02-12 07:02] LABS: HEMATOCRIT 42.1 % (42.0-52.0); HEMOGLOBIN 14.8 g/dl (13.5-17.5); MEAN CORPUSCULAR HGB CONC 35.2 g/dl (32.0-36.5); MEAN CORPUSCULAR VOLUME 85.4 fl (80.0-96.0); PLATELET COUNT, AUTOMATED 172 10^3/uL (150-450); RED BLOOD COUNT 4.93 10^6/uL (4.30-6.10); WHITE BLOOD COUNT 6.6 10^3/uL (4.0-10.0)
[2022-02-12 07:55] LABS: ALBUMIN 2.8 GM/DL (3.2-5.2); ALT/SGPT 19 U/L (12-78); BILIRUBIN,TOTAL 0.6 MG/DL (0.2-1.0); BLOOD UREA NITROGEN 14 MG/DL (7-18); CARBON DIOXIDE LEVEL 19 MEQ/L (21-32); CHLORIDE LEVEL 103 MEQ/L (98-107); CREATININE FOR GFR 1.03 MG/DL (0.70-1.30); GLOMERULAR FILTRATION RATE > 60.0 (>56); GLUCOSE, FASTING 181 MG/DL (70-100); POTASSIUM SERUM 3.8 MEQ/L (3.5-5.1); SODIUM LEVEL 136 MEQ/L (136-145); TOTAL PROTEIN 5.6 GM/DL (6.4-8.2)
[2022-02-12] MEDS: PANTOPRAZOLE 40MG VIAL IV SCH (08:18)
[2022-02-12] MEDS: ESCITALOPRAM OXALATE 10 MG TAB (LEXAPRO) PO SCH (08:19)
[2022-02-12] MEDS: LEVEMIR (INSULIN DETEMIR) 1 UNITS/0.01ML SC SCH ×2 (08:19→20:38)
[2022-02-12] MEDS: APIXABAN 5 MG TAB (ELIQUIS) PO SCH ×2 (08:20→20:39)
[2022-02-12] MEDS: AMIODARONE 200 MG TAB (PACERONE) PO SCH ×2 (08:20→20:39)
[2022-02-12] MEDS: ONDANSETRON 4MG 2ML VIAL IV PRN ×3 (08:27→20:39)
[2022-02-12 15:46] LABS: BLOOD UREA NITROGEN 12 MG/DL (7-18); CALCIUM LEVEL 8.1 MG/DL (8.5-10.1); CARBON DIOXIDE LEVEL 19 MEQ/L (21-32); CHLORIDE LEVEL 102 MEQ/L (98-107); CREATININE FOR GFR 1.15 MG/DL (0.70-1.30); GLOMERULAR FILTRATION RATE > 60.0 (>56); GLUCOSE, FASTING 264 MG/DL (70-100); POTASSIUM SERUM 3.6 MEQ/L (3.5-5.1); SODIUM LEVEL 135 MEQ/L (136-145)
[2022-02-12] MEDS: DOCUSATE SODIUM 100MG CAPSULE PO SCH (16:13)
[2022-02-12] MEDS ORDERED: LR 500 ML IV ONE (18:25)
[2022-02-13] VITALS: BP 126/65
[2022-02-13 04:00] VITALS: BP 116/56
[2022-02-13] MEDS: INSULIN LISPRO (NovoLOG) PER UNIT SC SCH ×3 (05:09→21:00)
[2022-02-13 06:03] LABS: HEMATOCRIT 44.2 % (42.0-52.0); HEMOGLOBIN 15.6 g/dl (13.5-17.5); MEAN CORPUSCULAR HEMOGLOBIN 29.7 pg (27.0-33.0); MEAN CORPUSCULAR HGB CONC 35.3 g/dl (32.0-36.5); PLATELET COUNT, AUTOMATED 176 10^3/uL (150-450); RED BLOOD COUNT 5.26 10^6/uL (4.30-6.10); WHITE BLOOD COUNT 8.1 10^3/uL (4.0-10.0)
[2022-02-13 06:32] LABS: ALBUMIN 2.8 GM/DL (3.2-5.2); ALT/SGPT 17 U/L (12-78); BILIRUBIN,TOTAL 0.5 MG/DL (0.2-1.0); BLOOD UREA NITROGEN 10 MG/DL (7-18); CALCIUM LEVEL 8.4 MG/DL (8.5-10.1); CARBON DIOXIDE LEVEL 25 MEQ/L (21-32); CHLORIDE LEVEL 102 MEQ/L (98-107); CREATININE FOR GFR 1.01 MG/DL (0.70-1.30); GLOMERULAR FILTRATION RATE > 60.0 (>56); GLUCOSE, FASTING 180 MG/DL (70-100); POTASSIUM SERUM 3.5 MEQ/L (3.5-5.1); SODIUM LEVEL 139 MEQ/L (136-145); TOTAL PROTEIN 5.7 GM/DL (6.4-8.2)
[2022-02-13 08:00] VITALS: BP 114/76
[2022-02-13] MEDS: PANTOPRAZOLE 40MG VIAL IV SCH (08:23)
[2022-02-13] MEDS: LEVEMIR (INSULIN DETEMIR) 1 UNITS/0.01ML SC SCH ×2 (08:23→21:53)
[2022-02-13 08:24] LABS: PHOSPHORUS LEVEL 1.2 MG/DL (2.5-4.9)
[2022-02-13] MEDS: DOCUSATE SODIUM 100MG CAPSULE PO SCH (08:24)
[2022-02-13] MEDS: ESCITALOPRAM OXALATE 10 MG TAB (LEXAPRO) PO SCH (08:24)
[2022-02-13] MEDS: AMIODARONE 200 MG TAB (PACERONE) PO SCH ×2 (08:24→21:52)
[2022-02-13] MEDS: APIXABAN 5 MG TAB (ELIQUIS) PO SCH ×2 (08:24→21:52)
[2022-02-13] MEDS: NEUTRA-PHOS 1.5 GM PACKET PO SCH ×2 (09:31→21:51)
[2022-02-13] MEDS ORDERED: POTASSIUM PHOSPHATE INJ 30 MMOL in D5W 500 ML IV ONE (12:00)
[2022-02-13 17:25] VITALS: BP 104/61
[2022-02-13] MEDS ORDERED: INSULIN LISPRO (NovoLOG) PER UNIT SC SCH ×2 (18:00→21:00)
[2022-02-14] MEDS: ONDANSETRON 4MG 2ML VIAL IV PRN (01:35)
[2022-02-14 04:48] VITALS: BP 106/60
[2022-02-14 06:39] LABS: HEMATOCRIT 40.9 % (42.0-52.0); HEMOGLOBIN 14.1 g/dl (13.5-17.5); MEAN CORPUSCULAR HEMOGLOBIN 29.2 pg (27.0-33.0); MEAN CORPUSCULAR HGB CONC 34.5 g/dl (32.0-36.5); MEAN CORPUSCULAR VOLUME 84.7 fl (80.0-96.0); PLATELET COUNT, AUTOMATED 175 10^3/uL (150-450); RED BLOOD COUNT 4.83 10^6/uL (4.30-6.10); WHITE BLOOD COUNT 7.4 10^3/uL (4.0-10.0)
[2022-02-14 07:25] LABS: ALBUMIN 2.7 GM/DL (3.2-5.2); ALT/SGPT 18 U/L (12-78); BILIRUBIN,TOTAL 0.4 MG/DL (0.2-1.0); BLOOD UREA NITROGEN 8 MG/DL (7-18); CALCIUM LEVEL 8.2 MG/DL (8.5-10.1); CARBON DIOXIDE LEVEL 24 MEQ/L (21-32); CHLORIDE LEVEL 97 MEQ/L (98-107); CREATININE FOR GFR 0.85 MG/DL (0.70-1.30); GLOMERULAR FILTRATION RATE > 60.0 (>56); GLUCOSE, FASTING 191 MG/DL (70-100); MAGNESIUM LEVEL 1.8 MG/DL (1.8-2.4); PHOSPHORUS LEVEL 1.9 MG/DL (2.5-4.9); POTASSIUM SERUM 3.5 MEQ/L (3.5-5.1); SODIUM LEVEL 134 MEQ/L (136-145); TOTAL PROTEIN 5.5 GM/DL (6.4-8.2)
[2022-02-14] MEDS: LEVEMIR (INSULIN DETEMIR) 1 UNITS/0.01ML SC SCH ×2 (08:25→20:29)
[2022-02-14] MEDS: INSULIN LISPRO (NovoLOG) PER UNIT SC SCH ×4 (08:26→20:05)
[2022-02-14] MEDS: APIXABAN 5 MG TAB (ELIQUIS) PO SCH ×2 (08:27→20:28)
[2022-02-14] MEDS: AMIODARONE 200 MG TAB (PACERONE) PO SCH ×2 (08:27→20:29)
[2022-02-14] MEDS: ESCITALOPRAM OXALATE 10 MG TAB (LEXAPRO) PO SCH (08:27)
[2022-02-14] MEDS: DOCUSATE SODIUM 100MG CAPSULE PO SCH (08:27)
[2022-02-14] MEDS: NEUTRA-PHOS 1.5 GM PACKET PO SCH ×3 (08:28→20:56)
[2022-02-14] MEDS: PANTOPRAZOLE 40MG VIAL IV SCH (08:28)
[2022-02-14] MEDS: ACETAMINOPHEN TAB 650MG DOSE (2X325MG) PO PRN (09:01)
[2022-02-14] MEDS ORDERED: POTASSIUM PHOSPHATE INJ 30 MMOL in D5W 500 ML IV ONE (11:00)
[2022-02-14] MEDS: AUGMENTIN 500MG TAB PO SCH ×2 (13:39→20:29)
[2022-02-14] MEDS: LACTOBACILLUS ACIDOPHILUS CAP (BACID) PO SCH (17:05)
[2022-02-15 06:45] VITALS: BP 102/64
[2022-02-15 07:03] LABS: HEMATOCRIT 39.5 % (42.0-52.0); HEMOGLOBIN 13.7 g/dl (13.5-17.5); MEAN CORPUSCULAR HEMOGLOBIN 29.3 pg (27.0-33.0); MEAN CORPUSCULAR HGB CONC 34.7 g/dl (32.0-36.5); MEAN CORPUSCULAR VOLUME 84.4 fl (80.0-96.0); PLATELET COUNT, AUTOMATED 194 10^3/uL (150-450); RED BLOOD COUNT 4.68 10^6/uL (4.30-6.10); WHITE BLOOD COUNT 6.3 10^3/uL (4.0-10.0)
[2022-02-15 07:43] LABS: ALBUMIN 2.6 GM/DL (3.2-5.2); ALT/SGPT 17 U/L (12-78); BILIRUBIN,TOTAL 0.5 MG/DL (0.2-1.0); BLOOD UREA NITROGEN 6 MG/DL (7-18); CALCIUM LEVEL 8.6 MG/DL (8.5-10.1); CARBON DIOXIDE LEVEL 29 MEQ/L (21-32); CHLORIDE LEVEL 97 MEQ/L (98-107); CREATININE FOR GFR 0.82 MG/DL (0.70-1.30); GLOMERULAR FILTRATION RATE > 60.0 (>56); GLUCOSE, FASTING 182 MG/DL (70-100); MAGNESIUM LEVEL 1.7 MG/DL (1.8-2.4); PHOSPHORUS LEVEL 2.4 MG/DL (2.5-4.9); POTASSIUM SERUM 3.3 MEQ/L (3.5-5.1); SODIUM LEVEL 135 MEQ/L (136-145); TOTAL PROTEIN 5.9 GM/DL (6.4-8.2)
[2022-02-15] MEDS ORDERED: MAG SULF 1GM/100ML (MAG RUN) 1 GM in IV 1 EA IV ONE (08:00)
[2022-02-15] MEDS ORDERED: POTASSIUM CHLORIDE 10MEQ SR TABLET PO ONE (08:00)
[2022-02-15] MEDS: PANTOPRAZOLE 40MG VIAL IV SCH (08:43)
[2022-02-15] MEDS: INSULIN LISPRO (NovoLOG) PER UNIT SC SCH ×4 (08:44→20:53)
[2022-02-15] MEDS: APIXABAN 5 MG TAB (ELIQUIS) PO SCH ×2 (08:45→20:51)
[2022-02-15] MEDS: AUGMENTIN 500MG TAB PO SCH ×2 (08:45→20:51)
[2022-02-15] MEDS: NEUTRA-PHOS 1.5 GM PACKET PO SCH ×3 (08:45→20:53)
[2022-02-15] MEDS: LEVEMIR (INSULIN DETEMIR) 1 UNITS/0.01ML SC SCH ×2 (08:45→20:53)
[2022-02-15] MEDS: DOCUSATE SODIUM 100MG CAPSULE PO SCH (08:45)
[2022-02-15] MEDS: LACTOBACILLUS ACIDOPHILUS CAP (BACID) PO SCH ×2 (08:45→17:32)
[2022-02-15] MEDS: ESCITALOPRAM OXALATE 10 MG TAB (LEXAPRO) PO SCH (08:45)
[2022-02-15] MEDS: AMIODARONE 200 MG TAB (PACERONE) PO SCH ×2 (08:46→20:51)
[2022-02-15] MEDS ORDERED: SODIUM PHOSPHATE INJ 30 MMOL in D5W 500 ML IV ONE (11:00)
[2022-02-15 14:00] VITALS: BP 130/72
[2022-02-15] MEDS: ACETAMINOPHEN TAB 650MG DOSE (2X325MG) PO PRN (20:51)
[2022-02-15 22:00] VITALS: BP 125/88
[2022-02-16 06:00] VITALS: BP 111/68
[2022-02-16 07:29] VITALS: BP 124/80
[2022-02-16 07:41] LABS: BASO % 0.7 % (0.0-1.0); EOS # 0.2 10^3/uL (0.0-0.5); EOS % 3.5 % (0.0-3.0); HEMATOCRIT 40.7 % (42.0-52.0); HEMOGLOBIN 14.1 g/dl (13.5-17.5); LYMPH # 1.2 10^3/uL (1.5-5.0); LYMPH % 21.3 % (24.0-44.0); MEAN CORPUSCULAR HEMOGLOBIN 29.4 pg (27.0-33.0); MEAN CORPUSCULAR HGB CONC 34.6 g/dl (32.0-36.5); MONO # 0.7 10^3/uL (0.0-0.8); NEUTROPHILS # 3.1 10^3/uL (1.5-8.5); NEUTROPHILS % 57.6 % (36.0-66.0); PLATELET COUNT, AUTOMATED 216 10^3/uL (150-450); RED BLOOD COUNT 4.79 10^6/uL (4.30-6.10); WHITE BLOOD COUNT 5.5 10^3/uL (4.0-10.0)
[2022-02-16 08:19] LABS: BLOOD UREA NITROGEN 6 MG/DL (7-18); CALCIUM LEVEL 8.6 MG/DL (8.5-10.1); CARBON DIOXIDE LEVEL 30 MEQ/L (21-32); CHLORIDE LEVEL 97 MEQ/L (98-107); CREATININE FOR GFR 0.71 MG/DL (0.70-1.30); GLOMERULAR FILTRATION RATE > 60.0 (>56); GLUCOSE, FASTING 225 MG/DL (70-100); MAGNESIUM LEVEL 1.7 MG/DL (1.8-2.4); PHOSPHORUS LEVEL 3.5 MG/DL (2.5-4.9); POTASSIUM SERUM 3.6 MEQ/L (3.5-5.1); SODIUM LEVEL 135 MEQ/L (136-145)
[2022-02-16] MEDS: ONDANSETRON 4MG 2ML VIAL IV PRN (08:41)
[2022-02-16] MEDS: LACTOBACILLUS ACIDOPHILUS CAP (BACID) PO SCH ×2 (08:42→17:12)
[2022-02-16] MEDS: LEVEMIR (INSULIN DETEMIR) 1 UNITS/0.01ML SC SCH ×2 (08:42→21:35)
[2022-02-16] MEDS: DOCUSATE SODIUM 100MG CAPSULE PO SCH (08:43)
[2022-02-16] MEDS: ESCITALOPRAM OXALATE 10 MG TAB (LEXAPRO) PO SCH (08:43)
[2022-02-16] MEDS: APIXABAN 5 MG TAB (ELIQUIS) PO SCH ×2 (08:43→21:34)
[2022-02-16] MEDS: AMIODARONE 200 MG TAB (PACERONE) PO SCH ×2 (08:43→21:34)
[2022-02-16] MEDS: AUGMENTIN 500MG TAB PO SCH ×2 (09:00→21:34)
[2022-02-16] MEDS: INSULIN LISPRO (NovoLOG) PER UNIT SC SCH ×4 (09:00→21:35)
[2022-02-16] MEDS: NEUTRA-PHOS 1.5 GM PACKET PO SCH ×3 (09:00→21:35)
[2022-02-16] MEDS: PANTOPRAZOLE 40MG VIAL IV SCH (09:00)
[2022-02-16] MEDS ORDERED: MAGNESIUM OXIDE 400MG TAB (MAG-OX) PO ONE (12:00)
[2022-02-16] MEDS: ACETAMINOPHEN TAB 650MG DOSE (2X325MG) PO PRN (21:34)
[2022-02-16 22:00] VITALS: BP 116/68
[2022-02-17] MEDS: METOCLOPRAMIDE 5 MG TAB PO PRN ×3 (01:24→20:52)
[2022-02-17 06:00] VITALS: BP 109/65
[2022-02-17] MEDS: LACTOBACILLUS ACIDOPHILUS CAP (BACID) PO SCH ×2 (08:43→18:00)
[2022-02-17] MEDS: ESCITALOPRAM OXALATE 10 MG TAB (LEXAPRO) PO SCH (08:43)
[2022-02-17] MEDS: INSULIN LISPRO (NovoLOG) PER UNIT SC SCH ×4 (08:43→20:53)
[2022-02-17] MEDS: PANTOPRAZOLE 40MG TAB (PROTONIX) PO SCH (08:43)
[2022-02-17] MEDS: NEUTRA-PHOS 1.5 GM PACKET PO SCH ×3 (08:44→20:53)
[2022-02-17] MEDS: AUGMENTIN 500MG TAB PO SCH ×2 (08:44→20:52)
[2022-02-17] MEDS: LEVEMIR (INSULIN DETEMIR) 1 UNITS/0.01ML SC SCH ×2 (08:44→20:53)
[2022-02-17] MEDS: APIXABAN 5 MG TAB (ELIQUIS) PO SCH ×2 (08:45→20:52)
[2022-02-17] MEDS: AMIODARONE 200 MG TAB (PACERONE) PO SCH ×2 (08:45→20:52)
[2022-02-17] MEDS: DOCUSATE SODIUM 100MG CAPSULE PO SCH (08:45)
[2022-02-17 10:49] LABS: BASO % 0.7 % (0.0-1.0); EOS # 0.1 10^3/uL (0.0-0.5); HEMATOCRIT 39.8 % (42.0-52.0); HEMOGLOBIN 13.7 g/dl (13.5-17.5); LYMPH # 0.9 10^3/uL (1.5-5.0); LYMPH % 20.6 % (24.0-44.0); MEAN CORPUSCULAR HEMOGLOBIN 29.8 pg (27.0-33.0); MEAN CORPUSCULAR HGB CONC 34.4 g/dl (32.0-36.5); MEAN CORPUSCULAR VOLUME 86.7 fl (80.0-96.0); MONO # 0.7 10^3/uL (0.0-0.8); MONO % 14.9 % (2.0-8.0); NEUTROPHILS # 2.7 10^3/uL (1.5-8.5); PLATELET COUNT, AUTOMATED 253 10^3/uL (150-450); RED BLOOD COUNT 4.59 10^6/uL (4.30-6.10); WHITE BLOOD COUNT 4.5 10^3/uL (4.0-10.0)
[2022-02-17 11:19] LABS: ALBUMIN 2.8 GM/DL (3.2-5.2); ALT/SGPT 14 U/L (12-78); BILIRUBIN,TOTAL 0.3 MG/DL (0.2-1.0); BLOOD UREA NITROGEN 7 MG/DL (7-18); CALCIUM LEVEL 9.1 MG/DL (8.5-10.1); CARBON DIOXIDE LEVEL 33 MEQ/L (21-32); CHLORIDE LEVEL 94 MEQ/L (98-107); CREATININE FOR GFR 0.75 MG/DL (0.70-1.30); GLOMERULAR FILTRATION RATE > 60.0 (>56); GLUCOSE, FASTING 341 MG/DL (70-100); MAGNESIUM LEVEL 1.6 MG/DL (1.8-2.4); POTASSIUM SERUM 4.2 MEQ/L (3.5-5.1); SODIUM LEVEL 130 MEQ/L (136-145); TOTAL PROTEIN 5.6 GM/DL (6.4-8.2)
[2022-02-17] MEDS: MAGNESIUM OXIDE 400MG TAB (MAG-OX) PO SCH ×2 (13:45→20:52)
[2022-02-17] MEDS ORDERED: MAG SULF 1GM/100ML (MAG RUN) 1 GM in IV 1 EA IV ONE (14:00)
[2022-02-17] MEDS: ACETAMINOPHEN TAB 650MG DOSE (2X325MG) PO PRN (20:54)
[2022-02-18 06:00] VITALS: BP 109/68
[2022-02-18] MEDS: INSULIN LISPRO (NovoLOG) PER UNIT SC SCH ×2 (07:38→11:57)
[2022-02-18 07:58] VITALS: BP 106/64
[2022-02-18] MEDS ORDERED: RISATAB3 PO (08:35)
[2022-02-18] MEDS ORDERED: DILT60TA PO (08:35)
[2022-02-18] MEDS ORDERED: INSUHUMDS SC (08:35)
[2022-02-18] MEDS ORDERED: NEUTPW PO (08:35)
[2022-02-18] MEDS ORDERED: INSUDET SC (08:35)
[2022-02-18] MEDS ORDERED: MAGN400T2 PO (08:35)
[2022-02-18] MEDS: LACTOBACILLUS ACIDOPHILUS CAP (BACID) PO SCH (08:45)
[2022-02-18 08:46] VITALS: BP 106/64
[2022-02-18] MEDS: DOCUSATE SODIUM 100MG CAPSULE PO SCH (08:46)
[2022-02-18] MEDS: ESCITALOPRAM OXALATE 10 MG TAB (LEXAPRO) PO SCH (08:46)
[2022-02-18] MEDS: APIXABAN 5 MG TAB (ELIQUIS) PO SCH (08:46)
[2022-02-18] MEDS: MAGNESIUM OXIDE 400MG TAB (MAG-OX) PO SCH (08:48)
[2022-02-18] MEDS: AMIODARONE 200 MG TAB (PACERONE) PO SCH (08:48)
[2022-02-18] MEDS: PANTOPRAZOLE 40MG TAB (PROTONIX) PO SCH (08:48)
[2022-02-18] MEDS: LEVEMIR (INSULIN DETEMIR) 1 UNITS/0.01ML SC SCH (08:50)
[2022-02-18 09:14] LABS: BLOOD UREA NITROGEN 7 MG/DL (7-18); CALCIUM LEVEL 8.9 MG/DL (8.5-10.1); CARBON DIOXIDE LEVEL 31 MEQ/L (21-32); CHLORIDE LEVEL 93 MEQ/L (98-107); GLOMERULAR FILTRATION RATE > 60.0 (>56); GLUCOSE, FASTING 353 MG/DL (70-100); MAGNESIUM LEVEL 1.7 MG/DL (1.8-2.4); POTASSIUM SERUM 4.4 MEQ/L (3.5-5.1); SODIUM LEVEL 130 MEQ/L (136-145)
[2022-02-18] MEDS ORDERED: MAG SULF 1GM/100ML (MAG RUN) 1 GM in IV 1 EA IV ONE (10:00)
[2022-02-18] MEDS: NEUTRA-PHOS 1.5 GM PACKET PO SCH (10:06)
== END 2022-02-18 13:10 | DRG 420 ==
LOC: EDBD 22:39 → M ED 22:39 → M ED INP 02-08 02:00 → ENRESERV 02-08 02:27 → M ICU 02-08 03:00 → M PCU 02-11 10:32 → M MS5PR 02-13 16:55
PROVIDERS: ADMIT Internal Medicine; ATTEND Internal Medicine
DX: E11.10 Type 2 diabetes mellitus with ketoacidosis without coma (principal); R00.0 Tachycardia, unspecified; Z79.84 Long term (current) use of oral hypoglycemic drugs; Z79.899 Other long term (current) drug therapy; I48.91 Unspecified atrial fibrillation; Z98.49 Cataract extraction status, unspecified eye; Z20.822 Contact with and (suspected) exposure to COVID-19; N17.9 Acute kidney failure, unspecified; D72.829 Elevated white blood cell count, unspecified; Z91.19 Patient's noncompliance with other medical treatment and regimen; S01.81XA Laceration without foreign body of other part of head, initial encounter; W01.0XXA Fall on same level from slipping, tripping and stumbling without subsequent striking against object, initial encounter; Y92.009 Unspecified place in unspecified non-institutional (private) residence as the place of occurrence of the external cause; F32.A Depression, unspecified; I50.32 Chronic diastolic (congestive) heart failure; G93.41 Metabolic encephalopathy; K21.9 Gastro-esophageal reflux disease without esophagitis; E86.0 Dehydration; K85.90 Acute pancreatitis without necrosis or infection, unspecified; K80.20 Calculus of gallbladder without cholecystitis without obstruction; R74.8 Abnormal levels of other serum enzymes; E87.6 Hypokalemia; E83.42 Hypomagnesemia; E83.39 Other disorders of phosphorus metabolism

== ENCOUNTER 2022-03-17 12:45 | Inpatient (IN) | payer OTHER ==
[~2022-03-17] VITALS: Ht 193 cm; Wt 120.9 kg
[~2022-03-17 12:45] MED LIST changes: +AMIO200T49 PO; +DILT60TA PO; +ELIQ5TAB PO; +INSUDET SC; +INSUHUMDS SC; +MAGN400T2 PO; +NEUTPW PO; +PANT40TA29 PO; +POTA-150 PO; +RISATAB3 PO; +ROSU10TA6 PO; +STEG5TAB PO; +TRUL0.5I SC
[2022-03-17] MEDS ORDERED: ONDANSETRON 4MG 2ML VIAL IV ONE (13:10)
[2022-03-17] MEDS ORDERED: NS 1,000 ML IV ONE (13:10)
[2022-03-17 13:20] LABS: VENOUS BASE EXCESS -14.3 (-2.0-2.0); VENOUS HCO3 12.2 MEQ/L (23.0-27.0); VENOUS O2 SATURATION 93.8 % (60.0-80.0); VENOUS PARTIAL PRESSURE CO2 31.4 mmHg (38.0-50.0); VENOUS PARTIAL PRESSURE O2 78.6 mmHg (30.0-50.0); VENOUS PH 7.209 UNITS (7.330-7.430); VENOUS STANDARD HCO3 13.8 MEQ/L; VENOUS TOTAL CO2 13.2 MEQ/L (24.0-28.0)
[2022-03-17 13:25] LABS: BASO # 0.1 10^3/uL (0.0-0.2); BASO % 0.7 % (0.0-1.0); EOS # 0.1 10^3/uL (0.0-0.5); EOS % 1.3 % (0.0-3.0); HEMATOCRIT 46.9 % (42.0-52.0); HEMOGLOBIN 15.7 g/dl (13.5-17.5); LYMPH # 2.8 10^3/uL (1.5-5.0); LYMPH % 28.6 % (24.0-44.0); MEAN CORPUSCULAR HGB CONC 33.5 g/dl (32.0-36.5); MEAN CORPUSCULAR VOLUME 89.7 fl (80.0-96.0); MONO # 0.6 10^3/uL (0.0-0.8); MONO % 6.3 % (2.0-8.0); NEUTROPHILS % 61.7 % (36.0-66.0); PLATELET COUNT, AUTOMATED 328 10^3/uL (150-450); RED BLOOD COUNT 5.23 10^6/uL (4.30-6.10); WHITE BLOOD COUNT 9.8 10^3/uL (4.0-10.0)
[2022-03-17 13:47] LABS: HEMOGLOBIN A1c 11.3 %
[2022-03-17 14:06] LABS: RSV AMPLIFICATION NEGATIVE (NEGATIVE)
[2022-03-17 14:10] LABS: ACETONE/KETONE > 46.00 MG/DL (<2.81); ALBUMIN 4.2 GM/DL (3.2-5.2); ALT/SGPT 29 U/L (12-78); BILIRUBIN,DIRECT 0.2 MG/DL (0.0-0.2); BILIRUBIN,TOTAL 0.6 MG/DL (0.2-1.0); BLOOD UREA NITROGEN 19 MG/DL (7-18); CALCIUM LEVEL 10.1 MG/DL (8.5-10.1); CARBON DIOXIDE LEVEL 12 MEQ/L (21-32); CHLORIDE LEVEL 102 MEQ/L (98-107); CREATININE FOR GFR 0.92 MG/DL (0.70-1.30); GLOMERULAR FILTRATION RATE > 60.0 (>56); GLUCOSE, FASTING 141 MG/DL (70-100); LIPASE 186 U/L (73-393); MAGNESIUM LEVEL 1.9 MG/DL (1.8-2.4); PHOSPHORUS LEVEL 4.5 MG/DL (2.5-4.9); POTASSIUM SERUM 4.4 MEQ/L (3.5-5.1); SODIUM LEVEL 136 MEQ/L (136-145); TOTAL PROTEIN 7.5 GM/DL (6.4-8.2)
[2022-03-17] MEDS ORDERED: D5W/0.9% SODIUM CHLORIDE 1,000 ML IV SCH (14:20)
[2022-03-17] MEDS ORDERED: INSULIN IV RATE CHANGE DOCUMENTATION ML/HR XX SCH ×2 (14:20→18:20)
[2022-03-17] MEDS ORDERED: INSULIN REGULAR IN 0.9 % NACL 100 UNIT in IV 1 EA IV SCH ×4 (14:20→18:20)
[2022-03-17] MEDS ORDERED: KETOROLAC 30 MG/ML 1ML VIAL IV ONE (15:25)
[2022-03-17] MEDS ORDERED: D10W/0.45% SODIUM CHLORIDE 1,000 ML IV SCH ×2 (17:20→18:20)
[2022-03-17] MEDS ORDERED: NS 500 ML IV ONE (18:25)
[2022-03-17] MEDS ORDERED: ALBUTEROL SULFATE 2.5 MG/0.5 ML INH NEB SOLN NEB PRN (18:25)
[2022-03-17] MEDS ORDERED: DILT0.05 PO (19:25)
[2022-03-17] MEDS ORDERED: STEG5TAB PO (19:25)
[2022-03-17] MEDS ORDERED: INSU100I36 INJ (19:25)
[2022-03-17] MEDS ORDERED: MAGN200T10 PO (19:25)
[2022-03-17] MEDS ORDERED: ADME100I2 INJ (19:25)
[2022-03-17] MEDS ORDERED: CYCL5TAB PO (19:25)
[2022-03-17] MEDS ORDERED: MED REC COMMENT (19:26)
[2022-03-17] MEDS ORDERED: HOME MED LIST COMPLETE! XX SCH (19:30)
[2022-03-17 19:39] LABS: BASO % 0.4 % (0.0-1.0); EOS % 0.2 % (0.0-3.0); HEMOGLOBIN 14.1 g/dl (13.5-17.5); LYMPH # 1.6 10^3/uL (1.5-5.0); LYMPH % 17.4 % (24.0-44.0); MEAN CORPUSCULAR HEMOGLOBIN 29.9 pg (27.0-33.0); MEAN CORPUSCULAR HGB CONC 33.6 g/dl (32.0-36.5); MEAN CORPUSCULAR VOLUME 89.2 fl (80.0-96.0); MONO # 0.5 10^3/uL (0.0-0.8); MONO % 5.7 % (2.0-8.0); NEUTROPHILS # 6.7 10^3/uL (1.5-8.5); NEUTROPHILS % 74.7 % (36.0-66.0); PLATELET COUNT, AUTOMATED 288 10^3/uL (150-450); RED BLOOD COUNT 4.71 10^6/uL (4.30-6.10)
[2022-03-17] MEDS ORDERED: DEXTROSE 50% 50 ML SYRINGE IV STA (19:47)
[2022-03-17 19:56] LABS: OSMOLALITY SERUM 297 MOSM/KG (275-295)
[2022-03-17 20:10] LABS: ACETONE/KETONE > 46.00 MG/DL (<2.81); BLOOD UREA NITROGEN 18 MG/DL (7-18); CALCIUM LEVEL 9.1 MG/DL (8.5-10.1); CARBON DIOXIDE LEVEL 17 MEQ/L (21-32); CHLORIDE LEVEL 106 MEQ/L (98-107); CREATININE FOR GFR 0.92 MG/DL (0.70-1.30); GLOMERULAR FILTRATION RATE > 60.0 (>56); GLUCOSE, FASTING 133 MG/DL (70-100); POTASSIUM SERUM 4.3 MEQ/L (3.5-5.1); SODIUM LEVEL 136 MEQ/L (136-145)
[2022-03-17 20:21] VITALS: BP 126/75
[2022-03-17] MEDS ORDERED: GLUCAGON INJ 1MG VIAL SC PRN (20:40)
[2022-03-17] MEDS ORDERED: GLUCOSE 4GM CHEW TABLET PO PRN (20:40)
[2022-03-17] MEDS ORDERED: DEXTROSE 50% 50 ML SYRINGE IV PRN (20:40)
[2022-03-17] MEDS ORDERED: LEVEMIR (INSULIN DETEMIR) 1 UNITS/0.01ML SC SCH (21:00)
[2022-03-17] MEDS ORDERED: ENOXAPARIN 100MG/1ML SYRINGE (J1650 PER 10MG) SC SCH (21:00)
[2022-03-17] MEDS: INSULIN LISPRO (NovoLOG) PER UNIT SC SCH (21:00)
[2022-03-17] MEDS: LR 1,000 ML IV SCH (21:09)
[2022-03-17] MEDS: ONDANSETRON 4MG 2ML VIAL IV PRN (23:07)
[2022-03-17 23:14] VITALS: BP 122/75
[2022-03-17 23:27] LABS: BLOOD UREA NITROGEN 15 MG/DL (7-18); CALCIUM LEVEL 9.4 MG/DL (8.5-10.1); CARBON DIOXIDE LEVEL 16 MEQ/L (21-32); CHLORIDE LEVEL 106 MEQ/L (98-107); CREATININE FOR GFR 0.92 MG/DL (0.70-1.30); GLOMERULAR FILTRATION RATE > 60.0 (>56); GLUCOSE, FASTING 160 MG/DL (70-100); POTASSIUM SERUM 4.3 MEQ/L (3.5-5.1); SODIUM LEVEL 138 MEQ/L (136-145)
[2022-03-18] MEDS ORDERED: CYCLOBENZAPRINE 5MG TABLET PO PRN (00:20)
[2022-03-18] MEDS: AMIODARONE 200 MG TAB (PACERONE) PO SCH ×2 (01:15→09:42)
[2022-03-18] MEDS: METOCLOPRAMIDE INJ 10MG/2ML VIAL (J2765 PER 1) IV PRN ×3 (03:44→14:00)
[2022-03-18 03:46] VITALS: BP 124/78
[2022-03-18 05:36] LABS: BLOOD UREA NITROGEN 14 MG/DL (7-18); CALCIUM LEVEL 9.3 MG/DL (8.5-10.1); CARBON DIOXIDE LEVEL 14 MEQ/L (21-32); CHLORIDE LEVEL 106 MEQ/L (98-107); CREATININE FOR GFR 0.96 MG/DL (0.70-1.30); GLOMERULAR FILTRATION RATE > 60.0 (>56); GLUCOSE, FASTING 153 MG/DL (70-100); POTASSIUM SERUM 4.5 MEQ/L (3.5-5.1); SODIUM LEVEL 135 MEQ/L (136-145)
[2022-03-18] MEDS: LR 1,000 ML IV SCH ×3 (07:36→22:50)
[2022-03-18 08:00] VITALS: BP 130/77
[2022-03-18] MEDS: INSULIN LISPRO (NovoLOG) PER UNIT SC SCH ×8 (08:31→20:04)
[2022-03-18 08:33] LABS: INR 1.1; PROTHROMBIN TIME 14.6 SECONDS (12.7-14.5)
[2022-03-18 08:34] LABS: PARTIAL THROMBOPLASTIN TIME 34.1 SECONDS (25.9-37.0)
[2022-03-18] MEDS: POTASSIUM CHLORIDE 10MEQ SR TABLET PO SCH (09:00)
[2022-03-18] MEDS ORDERED: PANTOPRAZOLE 40MG VIAL IV SCH (09:00)
[2022-03-18] MEDS: ESCITALOPRAM OXALATE 10 MG TAB (LEXAPRO) PO SCH (09:41)
[2022-03-18] MEDS: LEVEMIR (INSULIN DETEMIR) 1 UNITS/0.01ML SC SCH ×2 (09:41→20:03)
[2022-03-18] MEDS: MAGNESIUM OXIDE 400MG TAB (MAG-OX) PO SCH (09:41)
[2022-03-18] MEDS: APIXABAN 5 MG TAB (ELIQUIS) PO SCH ×2 (09:42→20:03)
[2022-03-18] MEDS: PANTOPRAZOLE 40MG TAB (PROTONIX) PO SCH (09:42)
[2022-03-18 12:00] VITALS: BP 107/66
[2022-03-18] MEDS: ONDANSETRON 4MG 2ML VIAL IV PRN (14:55)
[2022-03-18 16:00] VITALS: BP 115/70
[2022-03-18 20:00] VITALS: BP 128/79
[2022-03-18] MEDS: ROSUVASTATIN 10 MG TAB (CRESTOR) PO SCH (20:03)
[2022-03-19] MEDS: METOCLOPRAMIDE INJ 10MG/2ML VIAL (J2765 PER 1) IV PRN ×2 (00:02→08:35)
[2022-03-19] MEDS: ONDANSETRON 4MG 2ML VIAL IV PRN (03:15)
[2022-03-19 04:00] VITALS: BP 113/61
[2022-03-19 06:04] LABS: HEMATOCRIT 45.8 % (42.0-52.0); MEAN CORPUSCULAR HEMOGLOBIN 29.8 pg (27.0-33.0); MEAN CORPUSCULAR HGB CONC 32.8 g/dl (32.0-36.5); MEAN CORPUSCULAR VOLUME 91.1 fl (80.0-96.0); PLATELET COUNT, AUTOMATED 291 10^3/uL (150-450); RED BLOOD COUNT 5.03 10^6/uL (4.30-6.10); WHITE BLOOD COUNT 9.2 10^3/uL (4.0-10.0)
[2022-03-19] MEDS: LR 1,000 ML IV SCH (06:12)
[2022-03-19 06:43] LABS: ALBUMIN 3.7 GM/DL (3.2-5.2); ALT/SGPT 22 U/L (12-78); BILIRUBIN,TOTAL 0.6 MG/DL (0.2-1.0); BLOOD UREA NITROGEN 9 MG/DL (7-18); CALCIUM LEVEL 9.2 MG/DL (8.5-10.1); CARBON DIOXIDE LEVEL 12 MEQ/L (21-32); CHLORIDE LEVEL 103 MEQ/L (98-107); CREATININE FOR GFR 1.13 MG/DL (0.70-1.30); GLOMERULAR FILTRATION RATE > 60.0 (>56); GLUCOSE, FASTING 135 MG/DL (70-100); POTASSIUM SERUM 4.5 MEQ/L (3.5-5.1); SODIUM LEVEL 132 MEQ/L (136-145); TOTAL PROTEIN 7.5 GM/DL (6.4-8.2)
[2022-03-19 07:54] VITALS: BP 116/71
[2022-03-19] MEDS: LEVEMIR (INSULIN DETEMIR) 1 UNITS/0.01ML SC SCH ×2 (08:46→20:11)
[2022-03-19] MEDS: INSULIN LISPRO (NovoLOG) PER UNIT SC SCH ×8 (08:46→20:11)
[2022-03-19] MEDS: MAGNESIUM OXIDE 400MG TAB (MAG-OX) PO SCH (08:51)
[2022-03-19] MEDS: POTASSIUM CHLORIDE 10MEQ SR TABLET PO SCH (08:52)
[2022-03-19] MEDS: PANTOPRAZOLE 40MG TAB (PROTONIX) PO SCH (09:00)
[2022-03-19] MEDS: APIXABAN 5 MG TAB (ELIQUIS) PO SCH ×2 (09:13→20:10)
[2022-03-19] MEDS: ESCITALOPRAM OXALATE 10 MG TAB (LEXAPRO) PO SCH (09:13)
[2022-03-19] MEDS: AMIODARONE 200 MG TAB (PACERONE) PO SCH (09:14)
[2022-03-19] MEDS: METOCLOPRAMIDE INJ 10MG/2ML VIAL (J2765 PER 1) IV SCH ×2 (09:56→12:17)
[2022-03-19 14:49] VITALS: BP 122/72
[2022-03-19] MEDS: METOCLOPRAMIDE 10MG TAB PO SCH (16:53)
[2022-03-19 20:00] VITALS: BP 114/64
[2022-03-19] MEDS: ROSUVASTATIN 10 MG TAB (CRESTOR) PO SCH (20:10)
[2022-03-20] MEDS: METOCLOPRAMIDE INJ 10MG/2ML VIAL (J2765 PER 1) IV PRN (03:06)
[2022-03-20 04:00] VITALS: BP 112/66
[2022-03-20 04:43] LABS: HEMATOCRIT 46.3 % (42.0-52.0); HEMOGLOBIN 15.2 g/dl (13.5-17.5); MEAN CORPUSCULAR HEMOGLOBIN 29.2 pg (27.0-33.0); MEAN CORPUSCULAR HGB CONC 32.8 g/dl (32.0-36.5); PLATELET COUNT, AUTOMATED 278 10^3/uL (150-450); WHITE BLOOD COUNT 9.1 10^3/uL (4.0-10.0)
[2022-03-20 05:13] LABS: ALBUMIN 3.9 GM/DL (3.2-5.2); ALT/SGPT 23 U/L (12-78); BILIRUBIN,TOTAL 0.6 MG/DL (0.2-1.0); BLOOD UREA NITROGEN 9 MG/DL (7-18); CARBON DIOXIDE LEVEL 14 MEQ/L (21-32); CHLORIDE LEVEL 104 MEQ/L (98-107); CREATININE FOR GFR 1.23 MG/DL (0.70-1.30); GLOMERULAR FILTRATION RATE > 60.0 (>56); GLUCOSE, FASTING 121 MG/DL (70-100); MAGNESIUM LEVEL 2.3 MG/DL (1.8-2.4); SODIUM LEVEL 133 MEQ/L (136-145); TOTAL PROTEIN 7.2 GM/DL (6.4-8.2)
[2022-03-20 08:01] VITALS: BP 124/78
[2022-03-20] MEDS: INSULIN LISPRO (NovoLOG) PER UNIT SC SCH ×8 (08:14→20:29)
[2022-03-20] MEDS: LEVEMIR (INSULIN DETEMIR) 1 UNITS/0.01ML SC SCH ×2 (08:15→20:50)
[2022-03-20] MEDS: METOCLOPRAMIDE 10MG TAB PO SCH (08:17)
[2022-03-20] MEDS: APIXABAN 5 MG TAB (ELIQUIS) PO SCH ×2 (08:55→20:51)
[2022-03-20] MEDS: POTASSIUM CHLORIDE 10MEQ SR TABLET PO SCH (08:56)
[2022-03-20] MEDS: MAGNESIUM OXIDE 400MG TAB (MAG-OX) PO SCH (08:56)
[2022-03-20] MEDS: PANTOPRAZOLE 40MG TAB (PROTONIX) PO SCH (08:56)
[2022-03-20] MEDS: ESCITALOPRAM OXALATE 10 MG TAB (LEXAPRO) PO SCH (08:56)
[2022-03-20] MEDS: AMIODARONE 200 MG TAB (PACERONE) PO SCH (08:56)
[2022-03-20] MEDS: METOCLOPRAMIDE INJ 10MG/2ML VIAL (J2765 PER 1) IV SCH ×3 (09:22→18:33)
[2022-03-20 11:45] VITALS: BP 94/69
[2022-03-20 13:15] VITALS: BP 120/75
[2022-03-20 20:00] VITALS: BP 105/74
[2022-03-20] MEDS: ROSUVASTATIN 10 MG TAB (CRESTOR) PO SCH (20:51)
[2022-03-20] MEDS ORDERED: MECLIZINE 12.5 MG TAB PO ONE (20:55)
[2022-03-21] VITALS (8 sets, daily range): BP systolic 105–146; BP diastolic 67–93
[2022-03-21] MEDS ORDERED: RAMELTEON 8 MG TAB (ROZEREM) PO ONE (01:40)
[2022-03-21 04:25] LABS: HEMATOCRIT 43.7 % (42.0-52.0); HEMOGLOBIN 14.9 g/dl (13.5-17.5); MEAN CORPUSCULAR HGB CONC 34.1 g/dl (32.0-36.5); MEAN CORPUSCULAR VOLUME 87.9 fl (80.0-96.0); PLATELET COUNT, AUTOMATED 252 10^3/uL (150-450); RED BLOOD COUNT 4.97 10^6/uL (4.30-6.10); WHITE BLOOD COUNT 8.1 10^3/uL (4.0-10.0)
[2022-03-21 05:04] LABS: ALBUMIN 3.6 GM/DL (3.2-5.2); ALT/SGPT 21 U/L (12-78); BILIRUBIN,TOTAL 0.6 MG/DL (0.2-1.0); BLOOD UREA NITROGEN 11 MG/DL (7-18); CARBON DIOXIDE LEVEL 14 MEQ/L (21-32); CHLORIDE LEVEL 102 MEQ/L (98-107); CREATININE FOR GFR 1.11 MG/DL (0.70-1.30); GLOMERULAR FILTRATION RATE > 60.0 (>56); GLUCOSE, FASTING 139 MG/DL (70-100); MAGNESIUM LEVEL 2.3 MG/DL (1.8-2.4); POTASSIUM SERUM 3.6 MEQ/L (3.5-5.1); SODIUM LEVEL 132 MEQ/L (136-145); TOTAL PROTEIN 6.9 GM/DL (6.4-8.2)
[2022-03-21] MEDS: METOCLOPRAMIDE INJ 10MG/2ML VIAL (J2765 PER 1) IV PRN (05:43)
[2022-03-21] MEDS: LEVEMIR (INSULIN DETEMIR) 1 UNITS/0.01ML SC SCH ×2 (07:39→20:37)
[2022-03-21] MEDS: ROSUVASTATIN 10 MG TAB (CRESTOR) PO SCH (07:40)
[2022-03-21] MEDS: INSULIN LISPRO (NovoLOG) PER UNIT SC SCH ×4 (07:40→20:05)
[2022-03-21] MEDS: METOCLOPRAMIDE INJ 10MG/2ML VIAL (J2765 PER 1) IV SCH ×3 (07:40→17:13)
[2022-03-21] MEDS: AMIODARONE 200 MG TAB (PACERONE) PO SCH (07:42)
[2022-03-21] MEDS: ESCITALOPRAM OXALATE 10 MG TAB (LEXAPRO) PO SCH (07:42)
[2022-03-21] MEDS: APIXABAN 5 MG TAB (ELIQUIS) PO SCH ×2 (07:42→20:36)
[2022-03-21] MEDS: PANTOPRAZOLE 40MG TAB (PROTONIX) PO SCH (07:43)
[2022-03-21] MEDS: POTASSIUM CHLORIDE 10MEQ SR TABLET PO SCH (07:43)
[2022-03-21] MEDS: MAGNESIUM OXIDE 400MG TAB (MAG-OX) PO SCH (07:43)
[2022-03-21] MEDS: SENOKOT S TAB PO SCH ×2 (09:00→20:36)
[2022-03-22 04:46] VITALS: BP 141/94
[2022-03-22 05:50] LABS: HEMATOCRIT 47.4 % (42.0-52.0); HEMOGLOBIN 16.2 g/dl (13.5-17.5); MEAN CORPUSCULAR HEMOGLOBIN 29.5 pg (27.0-33.0); MEAN CORPUSCULAR HGB CONC 34.2 g/dl (32.0-36.5); MEAN CORPUSCULAR VOLUME 86.3 fl (80.0-96.0); PLATELET COUNT, AUTOMATED 260 10^3/uL (150-450); RED BLOOD COUNT 5.49 10^6/uL (4.30-6.10)
[2022-03-22 06:33] LABS: ALBUMIN 3.9 GM/DL (3.2-5.2); ALT/SGPT 26 U/L (12-78); BILIRUBIN,TOTAL 0.8 MG/DL (0.2-1.0); BLOOD UREA NITROGEN 14 MG/DL (7-18); CARBON DIOXIDE LEVEL 10 MEQ/L (21-32); CHLORIDE LEVEL 103 MEQ/L (98-107); CREATININE FOR GFR 1.26 MG/DL (0.70-1.30); GLOMERULAR FILTRATION RATE > 60.0 (>56); GLUCOSE, FASTING 174 MG/DL (70-100); MAGNESIUM LEVEL 2.3 MG/DL (1.8-2.4); POTASSIUM SERUM 3.7 MEQ/L (3.5-5.1); SODIUM LEVEL 135 MEQ/L (136-145); TOTAL PROTEIN 7.3 GM/DL (6.4-8.2)
[2022-03-22] MEDS: METOCLOPRAMIDE INJ 10MG/2ML VIAL (J2765 PER 1) IV SCH ×3 (06:46→18:31)
[2022-03-22] MEDS: NS 1,000 ML IV SCH ×3 (09:12→21:49)
[2022-03-22] MEDS: LEVEMIR (INSULIN DETEMIR) 1 UNITS/0.01ML SC SCH ×2 (09:26→21:49)
[2022-03-22] MEDS: INSULIN LISPRO (NovoLOG) PER UNIT SC SCH ×4 (09:28→21:00)
[2022-03-22] MEDS: PANTOPRAZOLE 40MG TAB (PROTONIX) PO SCH (09:29)
[2022-03-22] MEDS: SENOKOT S TAB PO SCH ×2 (09:30→21:48)
[2022-03-22] MEDS: MAGNESIUM OXIDE 400MG TAB (MAG-OX) PO SCH (09:30)
[2022-03-22] MEDS: POTASSIUM CHLORIDE 10MEQ SR TABLET PO SCH (09:30)
[2022-03-22] MEDS: APIXABAN 5 MG TAB (ELIQUIS) PO SCH ×2 (09:30→21:48)
[2022-03-22] MEDS: ESCITALOPRAM OXALATE 10 MG TAB (LEXAPRO) PO SCH (09:30)
[2022-03-22] MEDS: AMIODARONE 200 MG TAB (PACERONE) PO SCH (09:30)
[2022-03-22] MEDS: GASTROGRAFIN SOLUTION 30ML PO SCH ×2 (12:31→13:30)
[2022-03-22] MEDS ORDERED: ISOVUE-370 76% 100ML VIAL As Ordered ONE (13:35)
[2022-03-22 14:00] VITALS: BP 137/96
[2022-03-22] MEDS: METOCLOPRAMIDE INJ 10MG/2ML VIAL (J2765 PER 1) IV PRN (15:55)
[2022-03-22 20:58] VITALS: BP 135/94
[2022-03-22] MEDS: ROSUVASTATIN 10 MG TAB (CRESTOR) PO SCH (21:48)
[2022-03-23] MEDS: METOCLOPRAMIDE INJ 10MG/2ML VIAL (J2765 PER 1) IV PRN (03:54)
[2022-03-23] MEDS: NS 1,000 ML IV SCH ×2 (06:08→16:51)
[2022-03-23 06:10] VITALS: BP 133/90
[2022-03-23 06:11] LABS: HEMATOCRIT 45.9 % (42.0-52.0); HEMOGLOBIN 15.4 g/dl (13.5-17.5); MEAN CORPUSCULAR HEMOGLOBIN 29.1 pg (27.0-33.0); MEAN CORPUSCULAR HGB CONC 33.6 g/dl (32.0-36.5); MEAN CORPUSCULAR VOLUME 86.6 fl (80.0-96.0); PLATELET COUNT, AUTOMATED 244 10^3/uL (150-450)
[2022-03-23 06:32] LABS: ALBUMIN 3.8 GM/DL (3.2-5.2); ALT/SGPT 24 U/L (12-78); BILIRUBIN,TOTAL 0.5 MG/DL (0.2-1.0); BLOOD UREA NITROGEN 13 MG/DL (7-18); CALCIUM LEVEL 8.9 MG/DL (8.5-10.1); CARBON DIOXIDE LEVEL 10 MEQ/L (21-32); CHLORIDE LEVEL 106 MEQ/L (98-107); CREATININE FOR GFR 1.13 MG/DL (0.70-1.30); GLOMERULAR FILTRATION RATE > 60.0 (>56); GLUCOSE, FASTING 149 MG/DL (70-100); MAGNESIUM LEVEL 2.4 MG/DL (1.8-2.4); POTASSIUM SERUM 3.7 MEQ/L (3.5-5.1); SODIUM LEVEL 135 MEQ/L (136-145); TOTAL PROTEIN 7.2 GM/DL (6.4-8.2)
[2022-03-23] MEDS: INSULIN LISPRO (NovoLOG) PER UNIT SC SCH ×4 (08:30→21:00)
[2022-03-23] MEDS: METOCLOPRAMIDE INJ 10MG/2ML VIAL (J2765 PER 1) IV SCH ×3 (08:36→17:03)
[2022-03-23] MEDS: PANTOPRAZOLE 40MG TAB (PROTONIX) PO SCH (08:50)
[2022-03-23] MEDS: ESCITALOPRAM OXALATE 10 MG TAB (LEXAPRO) PO SCH ×2 (08:50→09:00)
[2022-03-23] MEDS: POTASSIUM CHLORIDE 10MEQ SR TABLET PO SCH ×2 (08:50→09:00)
[2022-03-23] MEDS: SENOKOT S TAB PO SCH ×3 (08:51→22:05)
[2022-03-23] MEDS: AMIODARONE 200 MG TAB (PACERONE) PO SCH (08:53)
[2022-03-23] MEDS: MAGNESIUM OXIDE 400MG TAB (MAG-OX) PO SCH ×2 (08:53→09:00)
[2022-03-23] MEDS: LEVEMIR (INSULIN DETEMIR) 1 UNITS/0.01ML SC SCH ×2 (08:53→22:05)
[2022-03-23] MEDS: APIXABAN 5 MG TAB (ELIQUIS) PO SCH ×2 (08:53→22:04)
[2022-03-23 14:00] VITALS: BP 88/58
[2022-03-23 14:16] VITALS: BP 129/88
[2022-03-23 20:00] VITALS: BP 141/94
[2022-03-23] MEDS: ROSUVASTATIN 10 MG TAB (CRESTOR) PO SCH (22:05)
[2022-03-24] MEDS: NS 1,000 ML IV SCH ×3 (01:37→18:40)
[2022-03-24 05:40] VITALS: BP 136/94
[2022-03-24] MEDS: METOCLOPRAMIDE INJ 10MG/2ML VIAL (J2765 PER 1) IV PRN ×2 (05:53→06:00)
[2022-03-24 06:20] LABS: HEMATOCRIT 41.3 % (42.0-52.0); HEMOGLOBIN 14.6 g/dl (13.5-17.5); MEAN CORPUSCULAR HGB CONC 35.4 g/dl (32.0-36.5); PLATELET COUNT, AUTOMATED 224 10^3/uL (150-450); RED BLOOD COUNT 4.86 10^6/uL (4.30-6.10); WHITE BLOOD COUNT 8.2 10^3/uL (4.0-10.0)
[2022-03-24 06:46] LABS: ALBUMIN 3.5 GM/DL (3.2-5.2); ALT/SGPT 21 U/L (12-78); BILIRUBIN,TOTAL 0.6 MG/DL (0.2-1.0); BLOOD UREA NITROGEN 10 MG/DL (7-18); CALCIUM LEVEL 9.1 MG/DL (8.5-10.1); CARBON DIOXIDE LEVEL 16 MEQ/L (21-32); CHLORIDE LEVEL 108 MEQ/L (98-107); CREATININE FOR GFR 1.11 MG/DL (0.70-1.30); GLOMERULAR FILTRATION RATE > 60.0 (>56); GLUCOSE, FASTING 147 MG/DL (70-100); MAGNESIUM LEVEL 2.3 MG/DL (1.8-2.4); POTASSIUM SERUM 3.5 MEQ/L (3.5-5.1); SODIUM LEVEL 139 MEQ/L (136-145); TOTAL PROTEIN 6.6 GM/DL (6.4-8.2)
[2022-03-24] MEDS: INSULIN LISPRO (NovoLOG) PER UNIT SC SCH ×4 (07:43→21:00)
[2022-03-24] MEDS: METOCLOPRAMIDE INJ 10MG/2ML VIAL (J2765 PER 1) IV SCH ×3 (07:43→17:27)
[2022-03-24] MEDS: APIXABAN 5 MG TAB (ELIQUIS) PO SCH ×2 (08:09→21:59)
[2022-03-24] MEDS: SENOKOT S TAB PO SCH ×2 (08:15→21:59)
[2022-03-24] MEDS: ESCITALOPRAM OXALATE 10 MG TAB (LEXAPRO) PO SCH (08:16)
[2022-03-24] MEDS: PANTOPRAZOLE 40MG TAB (PROTONIX) PO SCH (08:16)
[2022-03-24] MEDS: MAGNESIUM OXIDE 400MG TAB (MAG-OX) PO SCH (08:16)
[2022-03-24] MEDS: POTASSIUM CHLORIDE 10MEQ SR TABLET PO SCH (08:16)
[2022-03-24] MEDS: AMIODARONE 200 MG TAB (PACERONE) PO SCH (08:33)
[2022-03-24] MEDS: LEVEMIR (INSULIN DETEMIR) 1 UNITS/0.01ML SC SCH ×2 (08:34→22:01)
[2022-03-24] MEDS ORDERED: SIMETHICONE 80MG CHEW TAB PO PRN (09:55)
[2022-03-24] MEDS: SUCRALFATE 1 GM TAB PO SCH ×2 (11:52→17:25)
[2022-03-24 14:00] VITALS: BP 135/87
[2022-03-24] MEDS: ROSUVASTATIN 10 MG TAB (CRESTOR) PO SCH (21:59)
[2022-03-24 22:00] VITALS: BP 134/86
[2022-03-25] MEDS: NS 1,000 ML IV SCH ×3 (04:08→18:25)
[2022-03-25 05:38] LABS: MEAN CORPUSCULAR HEMOGLOBIN 29.5 pg (27.0-33.0); MEAN CORPUSCULAR HGB CONC 35.1 g/dl (32.0-36.5); MEAN CORPUSCULAR VOLUME 84.1 fl (80.0-96.0); PLATELET COUNT, AUTOMATED 186 10^3/uL (150-450); WHITE BLOOD COUNT 6.2 10^3/uL (4.0-10.0)
[2022-03-25 06:00] VITALS: BP 124/93
[2022-03-25 06:20] LABS: ALBUMIN 3.2 GM/DL (3.2-5.2); ALT/SGPT 18 U/L (12-78); BILIRUBIN,TOTAL 0.6 MG/DL (0.2-1.0); BLOOD UREA NITROGEN 8 MG/DL (7-18); CALCIUM LEVEL 8.9 MG/DL (8.5-10.1); CARBON DIOXIDE LEVEL 22 MEQ/L (21-32); CHLORIDE LEVEL 103 MEQ/L (98-107); CREATININE FOR GFR 0.78 MG/DL (0.70-1.30); GLOMERULAR FILTRATION RATE > 60.0 (>56); GLUCOSE, FASTING 169 MG/DL (70-100); MAGNESIUM LEVEL 2.1 MG/DL (1.8-2.4); POTASSIUM SERUM 3.1 MEQ/L (3.5-5.1); SODIUM LEVEL 135 MEQ/L (136-145)
[2022-03-25] MEDS: SUCRALFATE 1 GM TAB PO SCH ×5 (07:30→18:20)
[2022-03-25] MEDS: POTASSIUM CHLORIDE 10MEQ SR TABLET PO ONE ×2 (08:00→10:30)
[2022-03-25] MEDS: POTASSIUM CHLORIDE 10MEQ SR TABLET PO SCH ×2 (09:00→10:30)
[2022-03-25] MEDS: METOCLOPRAMIDE INJ 10MG/2ML VIAL (J2765 PER 1) IV SCH ×3 (09:38→18:20)
[2022-03-25] MEDS: INSULIN LISPRO (NovoLOG) PER UNIT SC SCH ×4 (10:28→21:00)
[2022-03-25] MEDS: PANTOPRAZOLE 40MG TAB (PROTONIX) PO SCH ×2 (10:29→12:49)
[2022-03-25] MEDS: APIXABAN 5 MG TAB (ELIQUIS) PO SCH ×3 (10:29→21:33)
[2022-03-25] MEDS: SENOKOT S TAB PO SCH ×3 (10:29→21:33)
[2022-03-25] MEDS: AMIODARONE 200 MG TAB (PACERONE) PO SCH ×2 (10:29→12:49)
[2022-03-25] MEDS: ESCITALOPRAM OXALATE 10 MG TAB (LEXAPRO) PO SCH ×2 (10:29→12:52)
[2022-03-25] MEDS: LEVEMIR (INSULIN DETEMIR) 1 UNITS/0.01ML SC SCH ×2 (10:29→21:33)
[2022-03-25] MEDS: MAGNESIUM OXIDE 400MG TAB (MAG-OX) PO SCH ×2 (10:29→12:51)
[2022-03-25 14:20] VITALS: BP 106/61
[2022-03-25] MEDS: ROSUVASTATIN 10 MG TAB (CRESTOR) PO SCH (21:33)
[2022-03-25 22:00] VITALS: BP 160/89
[2022-03-26] MEDS: METOCLOPRAMIDE INJ 10MG/2ML VIAL (J2765 PER 1) IV PRN (03:27)
[2022-03-26 06:00] VITALS: BP 154/90
[2022-03-26 06:51] LABS: HEMATOCRIT 35.9 % (42.0-52.0); HEMOGLOBIN 12.9 g/dl (13.5-17.5); MEAN CORPUSCULAR HEMOGLOBIN 30.2 pg (27.0-33.0); MEAN CORPUSCULAR HGB CONC 35.9 g/dl (32.0-36.5); MEAN CORPUSCULAR VOLUME 84.1 fl (80.0-96.0); PLATELET COUNT, AUTOMATED 173 10^3/uL (150-450); RED BLOOD COUNT 4.27 10^6/uL (4.30-6.10); WHITE BLOOD COUNT 5.5 10^3/uL (4.0-10.0)
[2022-03-26 07:26] LABS: ALBUMIN 3.2 GM/DL (3.2-5.2); ALT/SGPT 16 U/L (12-78); BILIRUBIN,TOTAL 0.6 MG/DL (0.2-1.0); BLOOD UREA NITROGEN 7 MG/DL (7-18); CALCIUM LEVEL 8.5 MG/DL (8.5-10.1); CARBON DIOXIDE LEVEL 29 MEQ/L (21-32); CHLORIDE LEVEL 99 MEQ/L (98-107); CREATININE FOR GFR 0.65 MG/DL (0.70-1.30); GLOMERULAR FILTRATION RATE > 60.0 (>56); GLUCOSE, FASTING 121 MG/DL (70-100); MAGNESIUM LEVEL 1.8 MG/DL (1.8-2.4); POTASSIUM SERUM 2.8 MEQ/L (3.5-5.1); SODIUM LEVEL 136 MEQ/L (136-145); TOTAL PROTEIN 5.8 GM/DL (6.4-8.2)
[2022-03-26] MEDS: INSULIN LISPRO (NovoLOG) PER UNIT SC SCH ×4 (07:30→20:10)
[2022-03-26] MEDS: LEVEMIR (INSULIN DETEMIR) 1 UNITS/0.01ML SC SCH ×2 (08:12→20:09)
[2022-03-26] MEDS: SENOKOT S TAB PO SCH ×2 (08:13→20:08)
[2022-03-26] MEDS: APIXABAN 5 MG TAB (ELIQUIS) PO SCH ×2 (08:13→20:09)
[2022-03-26] MEDS: AMIODARONE 200 MG TAB (PACERONE) PO SCH (08:13)
[2022-03-26] MEDS: MAGNESIUM OXIDE 400MG TAB (MAG-OX) PO SCH (08:13)
[2022-03-26] MEDS: ESCITALOPRAM OXALATE 10 MG TAB (LEXAPRO) PO SCH (08:13)
[2022-03-26] MEDS: SUCRALFATE 1 GM TAB PO SCH ×4 (08:14→16:48)
[2022-03-26] MEDS ORDERED: POTASSIUM CHLORIDE 10MEQ SR TABLET PO ONE ×2 (09:00→12:00)
[2022-03-26] MEDS: PANTOPRAZOLE 40MG TAB (PROTONIX) PO SCH ×2 (09:20→20:09)
[2022-03-26] MEDS: KCL 10MEQ/100ML SWI (KRUN) 10 MEQ in IV 1 EA IV SCH ×4 (09:21→12:29)
[2022-03-26] MEDS: METOCLOPRAMIDE 10MG TAB PO SCH ×2 (12:27→16:48)
[2022-03-26 14:00] VITALS: BP 116/71
[2022-03-26] MEDS: ROSUVASTATIN 10 MG TAB (CRESTOR) PO SCH (20:09)
[2022-03-26 22:00] VITALS: BP_SYST 107; BP_SYST 136; BP_DIAS 62; BP_DIAS 95
[2022-03-26] MEDS: POTASSIUM CHLORIDE 10MEQ SR TABLET PO SCH (22:55)
[2022-03-27 06:00] VITALS: BP 110/77
[2022-03-27 06:04] LABS: BASO # 0.1 10^3/uL (0.0-0.2); EOS # 0.1 10^3/uL (0.0-0.5); EOS % 2.5 % (0.0-3.0); HEMATOCRIT 34.9 % (42.0-52.0); HEMOGLOBIN 12.3 g/dl (13.5-17.5); LYMPH # 1.4 10^3/uL (1.5-5.0); LYMPH % 28.5 % (24.0-44.0); MEAN CORPUSCULAR HEMOGLOBIN 29.6 pg (27.0-33.0); MEAN CORPUSCULAR HGB CONC 35.2 g/dl (32.0-36.5); MEAN CORPUSCULAR VOLUME 83.9 fl (80.0-96.0); MONO # 0.5 10^3/uL (0.0-0.8); MONO % 10.1 % (2.0-8.0); NEUTROPHILS # 2.8 10^3/uL (1.5-8.5); NEUTROPHILS % 57.3 % (36.0-66.0); PLATELET COUNT, AUTOMATED 159 10^3/uL (150-450); RED BLOOD COUNT 4.16 10^6/uL (4.30-6.10); WHITE BLOOD COUNT 4.9 10^3/uL (4.0-10.0)
[2022-03-27 06:47] LABS: BLOOD UREA NITROGEN 6 MG/DL (7-18); CALCIUM LEVEL 8.9 MG/DL (8.5-10.1); CARBON DIOXIDE LEVEL 32 MEQ/L (21-32); CHLORIDE LEVEL 96 MEQ/L (98-107); CREATININE FOR GFR 0.62 MG/DL (0.70-1.30); GLOMERULAR FILTRATION RATE > 60.0 (>56); GLUCOSE, FASTING 123 MG/DL (70-100); POTASSIUM SERUM 2.7 MEQ/L (3.5-5.1); SODIUM LEVEL 133 MEQ/L (136-145)
[2022-03-27] MEDS ORDERED: POTASSIUM CHLORIDE 10MEQ SR TABLET PO ONE ×2 (07:00→18:00)
[2022-03-27] MEDS: SUCRALFATE 1 GM TAB PO SCH ×3 (07:30→17:13)
[2022-03-27] MEDS: METOCLOPRAMIDE 10MG TAB PO SCH ×3 (07:30→17:13)
[2022-03-27] MEDS: INSULIN LISPRO (NovoLOG) PER UNIT SC SCH ×4 (07:30→20:51)
[2022-03-27 07:39] LABS: MAGNESIUM LEVEL 1.7 MG/DL (1.8-2.4)
[2022-03-27] MEDS: SENOKOT S TAB PO SCH ×2 (09:28→20:51)
[2022-03-27] MEDS: MAGNESIUM OXIDE 400MG TAB (MAG-OX) PO SCH ×2 (09:28→20:50)
[2022-03-27] MEDS: LEVEMIR (INSULIN DETEMIR) 1 UNITS/0.01ML SC SCH ×2 (09:28→20:51)
[2022-03-27] MEDS: PANTOPRAZOLE 40MG TAB (PROTONIX) PO SCH ×2 (09:28→20:50)
[2022-03-27] MEDS: ESCITALOPRAM OXALATE 10 MG TAB (LEXAPRO) PO SCH (09:28)
[2022-03-27] MEDS: APIXABAN 5 MG TAB (ELIQUIS) PO SCH ×2 (09:29→20:51)
[2022-03-27] MEDS: AMIODARONE 200 MG TAB (PACERONE) PO SCH (09:29)
[2022-03-27] MEDS ORDERED: MAG SULF 1GM/100ML (MAG RUN) 1 GM in IV 1 EA IV ONE (10:00)
[2022-03-27] MEDS: POTASSIUM CHLORIDE 10MEQ SR TABLET PO SCH ×2 (10:23→20:51)
[2022-03-27] MEDS ORDERED: MAGNESIUM OXIDE 400MG TAB (MAG-OX) PO ONE (10:45)
[2022-03-27 14:00] VITALS: BP 120/76
[2022-03-27 20:49] VITALS: BP 117/79
[2022-03-27] MEDS: ROSUVASTATIN 10 MG TAB (CRESTOR) PO SCH (20:50)
[2022-03-28] MEDS: LIDOCAINE 5% (LIDODERM) PATCH TD SCH ×2 (01:39→21:51)
[2022-03-28] MEDS ORDERED: traMADol 50 MG TAB PO ONE (02:00)
[2022-03-28 06:30] VITALS: BP 118/79
[2022-03-28 06:48] LABS: BASO % 0.7 % (0.0-1.0); EOS # 0.2 10^3/uL (0.0-0.5); EOS % 5.3 % (0.0-3.0); HEMATOCRIT 38.3 % (42.0-52.0); LYMPH # 1.8 10^3/uL (1.5-5.0); LYMPH % 38.9 % (24.0-44.0); MEAN CORPUSCULAR HEMOGLOBIN 29.1 pg (27.0-33.0); MEAN CORPUSCULAR HGB CONC 33.9 g/dl (32.0-36.5); MEAN CORPUSCULAR VOLUME 85.9 fl (80.0-96.0); MONO # 0.6 10^3/uL (0.0-0.8); MONO % 12.4 % (2.0-8.0); NEUTROPHILS # 1.9 10^3/uL (1.5-8.5); PLATELET COUNT, AUTOMATED 179 10^3/uL (150-450); RED BLOOD COUNT 4.46 10^6/uL (4.30-6.10); WHITE BLOOD COUNT 4.5 10^3/uL (4.0-10.0)
[2022-03-28 07:31] LABS: BLOOD UREA NITROGEN 8 MG/DL (7-18); CARBON DIOXIDE LEVEL 35 MEQ/L (21-32); CHLORIDE LEVEL 96 MEQ/L (98-107); CREATININE FOR GFR 0.64 MG/DL (0.70-1.30); GLOMERULAR FILTRATION RATE > 60.0 (>56); GLUCOSE, FASTING 195 MG/DL (70-100); POTASSIUM SERUM 2.9 MEQ/L (3.5-5.1); SODIUM LEVEL 136 MEQ/L (136-145)
[2022-03-28] MEDS: SUCRALFATE 1 GM TAB PO SCH ×3 (08:46→17:03)
[2022-03-28] MEDS: SENOKOT S TAB PO SCH ×2 (08:46→21:50)
[2022-03-28] MEDS: POTASSIUM CHLORIDE 10MEQ SR TABLET PO SCH ×2 (08:47→21:50)
[2022-03-28] MEDS: MAGNESIUM OXIDE 400MG TAB (MAG-OX) PO SCH ×2 (08:47→21:51)
[2022-03-28] MEDS: METOCLOPRAMIDE 10MG TAB PO SCH ×3 (08:47→17:03)
[2022-03-28] MEDS: ESCITALOPRAM OXALATE 10 MG TAB (LEXAPRO) PO SCH (08:47)
[2022-03-28] MEDS: PANTOPRAZOLE 40MG TAB (PROTONIX) PO SCH ×2 (08:47→21:51)
[2022-03-28] MEDS: APIXABAN 5 MG TAB (ELIQUIS) PO SCH ×2 (08:47→21:51)
[2022-03-28] MEDS: LEVEMIR (INSULIN DETEMIR) 1 UNITS/0.01ML SC SCH ×2 (08:48→21:52)
[2022-03-28] MEDS: INSULIN LISPRO (NovoLOG) PER UNIT SC SCH ×4 (08:48→21:00)
[2022-03-28] MEDS: AMIODARONE 200 MG TAB (PACERONE) PO SCH (08:51)
[2022-03-28] MEDS: **NOTE PATIENT COMMENT** MISC XX SCH (08:51)
[2022-03-28] MEDS ORDERED: POTASSIUM CHLORIDE 10MEQ SR TABLET PO ONE (12:00)
[2022-03-28 14:00] VITALS: BP 123/81
[2022-03-28] MEDS ORDERED: LORazepam 2 MG TAB PO ONE (14:15)
[2022-03-28] MEDS: FLUDROCORTISONE ACETATE 0.1 MG TAB PO SCH (14:30)
[2022-03-28 20:04] VITALS: BP 107/66
[2022-03-28] MEDS: ACETAMINOPHEN TAB 650MG DOSE (2X325MG) PO PRN (21:50)
[2022-03-28] MEDS: ROSUVASTATIN 10 MG TAB (CRESTOR) PO SCH (21:51)
[2022-03-29 05:05] VITALS: BP 103/69
[2022-03-29 08:19] LABS: BASO % 0.8 % (0.0-1.0); EOS # 0.2 10^3/uL (0.0-0.5); HEMATOCRIT 35.8 % (42.0-52.0); HEMOGLOBIN 12.4 g/dl (13.5-17.5); LYMPH # 1.3 10^3/uL (1.5-5.0); LYMPH % 35.1 % (24.0-44.0); MEAN CORPUSCULAR HEMOGLOBIN 30.2 pg (27.0-33.0); MEAN CORPUSCULAR HGB CONC 34.6 g/dl (32.0-36.5); MEAN CORPUSCULAR VOLUME 87.3 fl (80.0-96.0); MONO # 0.5 10^3/uL (0.0-0.8); MONO % 14.9 % (2.0-8.0); NEUTROPHILS # 1.6 10^3/uL (1.5-8.5); NEUTROPHILS % 43.6 % (36.0-66.0); PLATELET COUNT, AUTOMATED 176 10^3/uL (150-450); WHITE BLOOD COUNT 3.6 10^3/uL (4.0-10.0)
[2022-03-29] MEDS: LEVEMIR (INSULIN DETEMIR) 1 UNITS/0.01ML SC SCH ×2 (08:25→21:12)
[2022-03-29] MEDS: POTASSIUM CHLORIDE 10MEQ SR TABLET PO SCH ×2 (08:26→20:41)
[2022-03-29] MEDS: INSULIN LISPRO (NovoLOG) PER UNIT SC SCH ×4 (08:26→20:57)
[2022-03-29] MEDS: FLUDROCORTISONE ACETATE 0.1 MG TAB PO SCH (08:26)
[2022-03-29] MEDS: SENOKOT S TAB PO SCH ×2 (08:26→20:41)
[2022-03-29 08:27] VITALS: BP 131/87
[2022-03-29] MEDS: SUCRALFATE 1 GM TAB PO SCH ×3 (08:27→17:49)
[2022-03-29] MEDS: ESCITALOPRAM OXALATE 10 MG TAB (LEXAPRO) PO SCH (08:27)
[2022-03-29] MEDS: MAGNESIUM OXIDE 400MG TAB (MAG-OX) PO SCH ×2 (08:27→20:41)
[2022-03-29] MEDS: METOCLOPRAMIDE 10MG TAB PO SCH ×3 (08:27→17:49)
[2022-03-29] MEDS: APIXABAN 5 MG TAB (ELIQUIS) PO SCH ×2 (08:27→20:41)
[2022-03-29] MEDS: PANTOPRAZOLE 40MG TAB (PROTONIX) PO SCH ×2 (08:28→20:41)
[2022-03-29] MEDS: AMIODARONE 200 MG TAB (PACERONE) PO SCH (08:28)
[2022-03-29 08:55] LABS: BLOOD UREA NITROGEN 7 MG/DL (7-18); CARBON DIOXIDE LEVEL 39 MEQ/L (21-32); CHLORIDE LEVEL 94 MEQ/L (98-107); CREATININE FOR GFR 0.54 MG/DL (0.70-1.30); GLOMERULAR FILTRATION RATE > 60.0 (>56); GLUCOSE, FASTING 149 MG/DL (70-100); POTASSIUM SERUM 3.1 MEQ/L (3.5-5.1); SODIUM LEVEL 134 MEQ/L (136-145)
[2022-03-29] MEDS: **NOTE PATIENT COMMENT** MISC XX SCH (08:56)
[2022-03-29] MEDS ORDERED: COVID-19 VACC, MRNA(PFIZER)/PF 30MCG 0.3ML VIAL (EUA) IM.IMMUN ONE (12:00)
[2022-03-29 14:00] VITALS: BP 96/58
[2022-03-29] MEDS: ROSUVASTATIN 10 MG TAB (CRESTOR) PO SCH (20:41)
[2022-03-29] MEDS: LIDOCAINE 5% (LIDODERM) PATCH TD SCH ×2 (20:57→21:51)
[2022-03-29 21:07] VITALS: BP 92/62
[2022-03-30 05:38] VITALS: BP 108/75
[2022-03-30 07:25] LABS: BASO % 0.7 % (0.0-1.0); EOS # 0.2 10^3/uL (0.0-0.5); EOS % 4.2 % (0.0-3.0); HEMATOCRIT 35.3 % (42.0-52.0); LYMPH # 1.4 10^3/uL (1.5-5.0); LYMPH % 31.8 % (24.0-44.0); MEAN CORPUSCULAR VOLUME 88.3 fl (80.0-96.0); MONO # 0.7 10^3/uL (0.0-0.8); MONO % 16.5 % (2.0-8.0); NEUTROPHILS % 46.3 % (36.0-66.0); PLATELET COUNT, AUTOMATED 196 10^3/uL (150-450); WHITE BLOOD COUNT 4.2 10^3/uL (4.0-10.0)
[2022-03-30 07:51] LABS: BLOOD UREA NITROGEN 8 MG/DL (7-18); CALCIUM LEVEL 8.8 MG/DL (8.5-10.1); CARBON DIOXIDE LEVEL 35 MEQ/L (21-32); CHLORIDE LEVEL 99 MEQ/L (98-107); GLOMERULAR FILTRATION RATE > 60.0 (>56); GLUCOSE, FASTING 160 MG/DL (70-100); POTASSIUM SERUM 3.6 MEQ/L (3.5-5.1); SODIUM LEVEL 137 MEQ/L (136-145)
[2022-03-30] MEDS: INSULIN LISPRO (NovoLOG) PER UNIT SC SCH ×4 (09:08→21:00)
[2022-03-30] MEDS: LEVEMIR (INSULIN DETEMIR) 1 UNITS/0.01ML SC SCH ×2 (09:08→21:00)
[2022-03-30] MEDS: APIXABAN 5 MG TAB (ELIQUIS) PO SCH ×2 (09:09→21:40)
[2022-03-30] MEDS: SENOKOT S TAB PO SCH ×2 (09:09→21:40)
[2022-03-30] MEDS: POTASSIUM CHLORIDE 10MEQ SR TABLET PO SCH ×2 (09:09→21:40)
[2022-03-30] MEDS: ESCITALOPRAM OXALATE 10 MG TAB (LEXAPRO) PO SCH (09:09)
[2022-03-30] MEDS: SUCRALFATE 1 GM TAB PO SCH ×3 (09:10→18:09)
[2022-03-30] MEDS: METOCLOPRAMIDE 10MG TAB PO SCH ×3 (09:10→18:10)
[2022-03-30] MEDS: MAGNESIUM OXIDE 400MG TAB (MAG-OX) PO SCH ×2 (09:10→21:40)
[2022-03-30] MEDS: AMIODARONE 200 MG TAB (PACERONE) PO SCH (09:10)
[2022-03-30] MEDS: PANTOPRAZOLE 40MG TAB (PROTONIX) PO SCH ×2 (09:10→21:40)
[2022-03-30] MEDS: FLUDROCORTISONE ACETATE 0.1 MG TAB PO SCH (09:10)
[2022-03-30] MEDS: **NOTE PATIENT COMMENT** MISC XX SCH (09:11)
[2022-03-30 09:12] VITALS: BP 106/74
[2022-03-30 14:00] VITALS: BP 105/73
[2022-03-30] MEDS: ACETAMINOPHEN TAB 650MG DOSE (2X325MG) PO PRN (14:48)
[2022-03-30] MEDS: ROSUVASTATIN 10 MG TAB (CRESTOR) PO SCH (21:40)
[2022-03-30] MEDS: LIDOCAINE 5% (LIDODERM) PATCH TD SCH (21:41)
[2022-03-30 22:00] VITALS: BP 90/58
[2022-03-31 06:00] VITALS: BP 100/69
[2022-03-31 06:58] LABS: BASO % 0.7 % (0.0-1.0); EOS # 0.2 10^3/uL (0.0-0.5); EOS % 4.7 % (0.0-3.0); HEMATOCRIT 36.3 % (42.0-52.0); LYMPH # 1.4 10^3/uL (1.5-5.0); LYMPH % 31.6 % (24.0-44.0); MEAN CORPUSCULAR HEMOGLOBIN 29.9 pg (27.0-33.0); MEAN CORPUSCULAR HGB CONC 33.1 g/dl (32.0-36.5); MEAN CORPUSCULAR VOLUME 90.3 fl (80.0-96.0); MONO # 0.8 10^3/uL (0.0-0.8); MONO % 18.1 % (2.0-8.0); NEUTROPHILS # 1.9 10^3/uL (1.5-8.5); NEUTROPHILS % 44.4 % (36.0-66.0); PLATELET COUNT, AUTOMATED 207 10^3/uL (150-450); RED BLOOD COUNT 4.02 10^6/uL (4.30-6.10); WHITE BLOOD COUNT 4.3 10^3/uL (4.0-10.0)
[2022-03-31 07:42] LABS: BLOOD UREA NITROGEN 10 MG/DL (7-18); CALCIUM LEVEL 8.9 MG/DL (8.5-10.1); CARBON DIOXIDE LEVEL 33 MEQ/L (21-32); CHLORIDE LEVEL 99 MEQ/L (98-107); CREATININE FOR GFR 0.59 MG/DL (0.70-1.30); GLOMERULAR FILTRATION RATE > 60.0 (>56); GLUCOSE, FASTING 235 MG/DL (70-100); POTASSIUM SERUM 4.3 MEQ/L (3.5-5.1); SODIUM LEVEL 136 MEQ/L (136-145)
[2022-03-31] MEDS: SENOKOT S TAB PO SCH ×2 (08:01→20:12)
[2022-03-31] MEDS: POTASSIUM CHLORIDE 10MEQ SR TABLET PO SCH (08:01)
[2022-03-31] MEDS: AMIODARONE 200 MG TAB (PACERONE) PO SCH (08:02)
[2022-03-31] MEDS: APIXABAN 5 MG TAB (ELIQUIS) PO SCH ×2 (08:02→20:12)
[2022-03-31] MEDS: MAGNESIUM OXIDE 400MG TAB (MAG-OX) PO SCH ×2 (08:02→20:12)
[2022-03-31] MEDS: PANTOPRAZOLE 40MG TAB (PROTONIX) PO SCH ×2 (08:02→20:12)
[2022-03-31] MEDS: ESCITALOPRAM OXALATE 10 MG TAB (LEXAPRO) PO SCH (08:02)
[2022-03-31] MEDS: SUCRALFATE 1 GM TAB PO SCH ×3 (08:02→17:59)
[2022-03-31] MEDS: FLUDROCORTISONE ACETATE 0.1 MG TAB PO SCH (08:02)
[2022-03-31] MEDS: METOCLOPRAMIDE 10MG TAB PO SCH ×3 (08:02→17:59)
[2022-03-31] MEDS: INSULIN LISPRO (NovoLOG) PER UNIT SC SCH ×4 (08:03→20:12)
[2022-03-31] MEDS: **NOTE PATIENT COMMENT** MISC XX SCH (08:03)
[2022-03-31] MEDS: LEVEMIR (INSULIN DETEMIR) 1 UNITS/0.01ML SC SCH ×2 (08:03→20:13)
[2022-03-31 08:06] VITALS: BP 119/86
[2022-03-31 14:00] VITALS: BP_SYST 119; BP_SYST 134; BP_DIAS 86; BP_DIAS 90
[2022-03-31] MEDS: ROSUVASTATIN 10 MG TAB (CRESTOR) PO SCH (20:12)
[2022-03-31] MEDS: LIDOCAINE 5% (LIDODERM) PATCH TD SCH (20:13)
[2022-03-31 20:19] VITALS: BP 92/58
[2022-04-01 05:50] VITALS: BP 112/73
[2022-04-01 07:15] LABS: BASO % 0.7 % (0.0-1.0); EOS # 0.1 10^3/uL (0.0-0.5); EOS % 2.9 % (0.0-3.0); HEMATOCRIT 37.9 % (42.0-52.0); HEMOGLOBIN 12.5 g/dl (13.5-17.5); LYMPH # 1.6 10^3/uL (1.5-5.0); LYMPH % 35.7 % (24.0-44.0); MEAN CORPUSCULAR HEMOGLOBIN 29.6 pg (27.0-33.0); MEAN CORPUSCULAR VOLUME 89.6 fl (80.0-96.0); MONO # 0.8 10^3/uL (0.0-0.8); MONO % 17.7 % (2.0-8.0); NEUTROPHILS # 1.9 10^3/uL (1.5-8.5); NEUTROPHILS % 42.6 % (36.0-66.0); PLATELET COUNT, AUTOMATED 231 10^3/uL (150-450); RED BLOOD COUNT 4.23 10^6/uL (4.30-6.10); WHITE BLOOD COUNT 4.5 10^3/uL (4.0-10.0)
[2022-04-01 07:44] LABS: BLOOD UREA NITROGEN 11 MG/DL (7-18); CALCIUM LEVEL 8.8 MG/DL (8.5-10.1); CARBON DIOXIDE LEVEL 32 MEQ/L (21-32); CHLORIDE LEVEL 101 MEQ/L (98-107); CREATININE FOR GFR 0.68 MG/DL (0.70-1.30); GLOMERULAR FILTRATION RATE > 60.0 (>56); GLUCOSE, FASTING 139 MG/DL (70-100); POTASSIUM SERUM 4.3 MEQ/L (3.5-5.1); SODIUM LEVEL 136 MEQ/L (136-145)
[2022-04-01] MEDS: MAGNESIUM OXIDE 400MG TAB (MAG-OX) PO SCH (08:05)
[2022-04-01] MEDS: AMIODARONE 200 MG TAB (PACERONE) PO SCH (08:05)
[2022-04-01] MEDS: FLUDROCORTISONE ACETATE 0.1 MG TAB PO SCH (08:05)
[2022-04-01] MEDS: SUCRALFATE 1 GM TAB PO SCH ×2 (08:06→11:50)
[2022-04-01] MEDS: APIXABAN 5 MG TAB (ELIQUIS) PO SCH (08:06)
[2022-04-01] MEDS: METOCLOPRAMIDE 10MG TAB PO SCH ×2 (08:06→11:50)
[2022-04-01] MEDS: ESCITALOPRAM OXALATE 10 MG TAB (LEXAPRO) PO SCH (08:06)
[2022-04-01] MEDS: SENOKOT S TAB PO SCH (08:06)
[2022-04-01] MEDS: PANTOPRAZOLE 40MG TAB (PROTONIX) PO SCH (08:06)
[2022-04-01] MEDS: INSULIN LISPRO (NovoLOG) PER UNIT SC SCH ×2 (08:07→11:51)
[2022-04-01] MEDS: LEVEMIR (INSULIN DETEMIR) 1 UNITS/0.01ML SC SCH (08:07)
[2022-04-01] MEDS: **NOTE PATIENT COMMENT** MISC XX SCH (08:08)
[2022-04-01] MEDS ORDERED: POTASSIUM CHLORIDE 10MEQ SR TABLET PO SCH (09:00)
[2022-04-01] MEDS ORDERED: SIME80TA16 PO (10:20)
[2022-04-01] MEDS ORDERED: METO10TA2 PO (10:20)
[2022-04-01] MEDS ORDERED: FLUD0.1T PO (10:20)
[2022-04-01] MEDS ORDERED: INSU100I36 INJ (10:20)
[2022-04-01] MEDS ORDERED: ADME100I2 INJ (10:20)
[2022-04-01] MEDS ORDERED: SUCR1TA PO (10:20)
[2022-04-01] MEDS ORDERED: POTA-150 PO (10:20)
[2022-04-01] MEDS ORDERED: GABA-282 PO (10:21)
[2022-04-01] MEDS ORDERED: FLUBLOK(EGG FREE)(QUAD)INFLUENZA VACC 0.5ML SYRINGE 18YRS & OLDER IM.IMMUN ONE (12:00)
[2022-04-01] MEDS ORDERED: SUCR1ORA PO (12:25)
== END 2022-04-01 12:39 | disposition home health service (06) | DRG 420 ==
LOC: EDBD 12:45 → M ED 12:45 → M ED INP 18:25 → ENRESERV 19:05 → M ICU 20:15 → M MSPAV 03-21 22:47
PROVIDERS: ADMIT Internal Medicine; ATTEND Internal Medicine Nephrology
DX: E11.10 Type 2 diabetes mellitus with ketoacidosis without coma (principal); I50.32 Chronic diastolic (congestive) heart failure; E46 Unspecified protein-calorie malnutrition; I48.19 Other persistent atrial fibrillation; I48.92 Unspecified atrial flutter; R53.1 Weakness; M25.562 Pain in left knee; R11.2 Nausea with vomiting, unspecified; E87.6 Hypokalemia; K21.9 Gastro-esophageal reflux disease without esophagitis; I95.1 Orthostatic hypotension; Z20.822 Contact with and (suspected) exposure to COVID-19; F40.240 Claustrophobia; F32.A Depression, unspecified; Z91.14 Patient's other noncompliance with medication regimen; Z98.49 Cataract extraction status, unspecified eye; Z79.4 Long term (current) use of insulin; Z79.01 Long term (current) use of anticoagulants; Z79.899 Other long term (current) drug therapy

== ENCOUNTER 2022-04-21 18:44 | Emergency (ER) | payer OTHER ==
[~2022-04-21] VITALS: Ht 193 cm; Wt 125.5 kg
[~2022-04-21 18:44] MED LIST changes: +ADME100I2 INJ; +CYCL5TAB PO; +DILT0.05 PO; +FLUD0.1T PO; +GABA-282 PO; +INSU100I36 INJ; +MAGN200T10 PO; +MED REC COMMENT; +METO10TA2 PO; +SIME80TA16 PO; +SUCR1ORA PO; +SUCR1TA PO
[2022-04-21] MEDS ORDERED: NS 500 ML IV ONE ×2 (19:20→21:55)
[2022-04-21] MEDS ORDERED: ASPIRIN 81 MG CHEW TABLET PO ONE (19:20)
[2022-04-21] MEDS ORDERED: NITROGLYCERIN 0.4 MG SUBL TABLET SL PRN (19:20)
[2022-04-21 20:02] VITALS: BP 143/98
[2022-04-21 20:08] LABS: BASO % 0.8 % (0.0-1.0); EOS # 0.2 10^3/uL (0.0-0.5); EOS % 4.8 % (0.0-3.0); HEMATOCRIT 40.5 % (42.0-52.0); HEMOGLOBIN 13.4 g/dl (13.5-17.5); LYMPH # 1.6 10^3/uL (1.5-5.0); LYMPH % 33.3 % (24.0-44.0); MEAN CORPUSCULAR HGB CONC 33.1 g/dl (32.0-36.5); MEAN CORPUSCULAR VOLUME 90.6 fl (80.0-96.0); MONO # 0.7 10^3/uL (0.0-0.8); MONO % 13.7 % (2.0-8.0); NEUTROPHILS # 2.3 10^3/uL (1.5-8.5); PLATELET COUNT, AUTOMATED 235 10^3/uL (150-450); RED BLOOD COUNT 4.47 10^6/uL (4.30-6.10); WHITE BLOOD COUNT 4.8 10^3/uL (4.0-10.0)
[2022-04-21 20:25] LABS: INR 1.04; PROTHROMBIN TIME 13.8 SECONDS (12.5-14.5)
[2022-04-21 20:40] LABS: CPK CREATINE PHOSPHOKINASE 41 U/L (39-308)
[2022-04-21 20:46] LABS: ALBUMIN 3.4 GM/DL (3.2-5.2); ALT/SGPT 33 U/L (12-78); BILIRUBIN,DIRECT 0.1 MG/DL (0.0-0.2); BILIRUBIN,TOTAL 0.3 MG/DL (0.2-1.0); BLOOD UREA NITROGEN 9 MG/DL (7-18); CALCIUM LEVEL 8.6 MG/DL (8.5-10.1); CARBON DIOXIDE LEVEL 27 MEQ/L (21-32); CHLORIDE LEVEL 107 MEQ/L (98-107); CREATININE FOR GFR 0.65 MG/DL (0.70-1.30); GLOMERULAR FILTRATION RATE > 60.0 (>56); GLUCOSE, FASTING 173 MG/DL (70-100); LIPASE 181 U/L (73-393); NT-PRO BNP 91 PG/ML (<125); POTASSIUM SERUM 3.7 MEQ/L (3.5-5.1); SODIUM LEVEL 139 MEQ/L (136-145); THYROID STIMULATING HORMONE 0.019 uIU/ML (0.358-3.740); TOTAL PROTEIN 6.2 GM/DL (6.4-8.2)
[2022-04-21 20:50] LABS: D-DIMER QUANT < 270 ng/ml (<500)
[2022-04-21] MEDS ORDERED: ISOVUE-370 76% 100ML VIAL As Ordered ONE (20:50)
[2022-04-21] MEDS ORDERED: MECLIZINE 25 MG TABLET PO ONE ×2 (21:50→21:55)
[2022-04-21] MEDS ORDERED: NS 500 ML IV SCH (21:50)
[2022-04-21 22:39] LABS: CPK CREATINE PHOSPHOKINASE 28 U/L (39-308)
== END 2022-04-21 22:10 | disposition left against medical advice (07) ==
LOC: M ED 18:44
DX: R07.89 Other chest pain (principal); R42 Dizziness and giddiness; Z53.9 Procedure and treatment not carried out, unspecified reason; I48.91 Unspecified atrial fibrillation; I50.9 Heart failure, unspecified; E78.5 Hyperlipidemia, unspecified; K21.9 Gastro-esophageal reflux disease without esophagitis; F32.9 Major depressive disorder, single episode, unspecified; Z79.01 Long term (current) use of anticoagulants; Z79.899 Other long term (current) drug therapy
CPT/HCPCS: 71045; 71275; 80048; 80076; 82550; 83690; 83880; 84443; 85025; 85379; 85610; 85730; 93005; 93041; 94760; 96360; 99284; Q9967

== ENCOUNTER 2022-05-20 20:41 | Inpatient (IN) | payer OTHER ==
[~2022-05-20] VITALS: Ht 193 cm; Wt 120.3 kg
[~2022-05-20 20:41] MED LIST changes: -ADME100I SC; -CARA1TAB6 PO; -INSU100I36 SC; -MAGN400T35 PO; -POTA10TA67 PO; -SIME80CH5 PO; -STEG15TA PO
[2022-05-20 23:24] LABS: BASO # 0.1 10^3/uL (0.0-0.2); BASO % 0.4 % (0.0-1.0); HEMATOCRIT 46.9 % (42.0-52.0); HEMOGLOBIN 14.7 g/dl (13.5-17.5); LYMPH # 1.4 10^3/uL (1.5-5.0); LYMPH % 10.6 % (24.0-44.0); MEAN CORPUSCULAR HEMOGLOBIN 29.5 pg (27.0-33.0); MEAN CORPUSCULAR HGB CONC 31.3 g/dl (32.0-36.5); MEAN CORPUSCULAR VOLUME 94.2 fl (80.0-96.0); MONO # 0.6 10^3/uL (0.0-0.8); MONO % 4.8 % (2.0-8.0); NEUTROPHILS # 10.9 10^3/uL (1.5-8.5); PLATELET COUNT, AUTOMATED 328 10^3/uL (150-450); RED BLOOD COUNT 4.98 10^6/uL (4.30-6.10); WHITE BLOOD COUNT 13.2 10^3/uL (4.0-10.0)
[2022-05-21 00:11] LABS: ALT/SGPT 34 U/L (12-78); BILIRUBIN,DIRECT < 0.1 MG/DL (0.0-0.2); BILIRUBIN,TOTAL 0.5 MG/DL (0.2-1.0); BLOOD UREA NITROGEN 23 MG/DL (7-18); CALCIUM LEVEL 9.8 MG/DL (8.5-10.1); CARBON DIOXIDE LEVEL 9 MEQ/L (21-32); CHLORIDE LEVEL 104 MEQ/L (98-107); CREATININE FOR GFR 1.62 MG/DL (0.70-1.30); GLOMERULAR FILTRATION RATE 47.9 (>56); GLUCOSE, FASTING 238 MG/DL (70-100); LIPASE 103 U/L (73-393); POTASSIUM SERUM 5.9 MEQ/L (3.5-5.1); SODIUM LEVEL 136 MEQ/L (136-145); TOTAL PROTEIN 7.5 GM/DL (6.4-8.2)
[2022-05-21] MEDS ORDERED: NS 1,000 ML IV ONE ×2 (00:30→02:40)
[2022-05-21 00:46] LABS: VENOUS BASE EXCESS -19.8 (-2.0-2.0); VENOUS HCO3 9.2 MEQ/L (23.0-27.0); VENOUS O2 SATURATION 78.4 % (60.0-80.0); VENOUS PARTIAL PRESSURE CO2 31.9 mmHg (38.0-50.0); VENOUS PARTIAL PRESSURE O2 45.4 mmHg (30.0-50.0); VENOUS PH 7.076 UNITS (7.330-7.430); VENOUS STANDARD HCO3 10.1 MEQ/L; VENOUS TOTAL CO2 10.1 MEQ/L (24.0-28.0)
[2022-05-21 01:32] LABS: ACETONE/KETONE > 46.00 MG/DL (<2.81); POTASSIUM SERUM 4.8 MEQ/L (3.5-5.1)
[2022-05-21 01:32] LABS: MB/CK RELATIVE INDEX 2.2 (< OR =4)
[2022-05-21] MEDS ORDERED: ONDANSETRON 4MG 2ML VIAL IV ONE (02:40)
[2022-05-21] MEDS ORDERED: HumuLIN R (REGULAR) INSULIN (NovoLIN R) **100U/ML** PER UNIT IV ONE (02:50)
[2022-05-21] MEDS ORDERED: NS 1,680 ML in IV 1 EA IV ONE (02:55)
[2022-05-21] MEDS ORDERED: ISOVUE-370 76% 100ML VIAL As Ordered ONE (02:59)
[2022-05-21 05:18] LABS: CK-MB VALUE MASS 2.3 NG/ML (<3.6); MB/CK RELATIVE INDEX 5.75 (< OR =4)
[2022-05-21] MEDS ORDERED: METO10TA2 PO (05:28)
[2022-05-21] MEDS ORDERED: FLUD0.1T PO (05:28)
[2022-05-21] MEDS ORDERED: INSU100I36 SC (05:28)
[2022-05-21] MEDS ORDERED: CARA1TAB6 PO (05:28)
[2022-05-21] MEDS ORDERED: ADME100I SC (05:28)
[2022-05-21] MEDS ORDERED: MAGN400T35 PO (05:28)
[2022-05-21] MEDS ORDERED: STEG15TA PO (05:28)
[2022-05-21] MEDS ORDERED: GABA-282 PO (05:28)
[2022-05-21] MEDS ORDERED: POTA10TA67 PO (05:28)
[2022-05-21] MEDS ORDERED: SIME80CH5 PO (05:28)
[2022-05-21] MEDS ORDERED: HOME MED LIST COMPLETE! XX SCH (05:30)
[2022-05-21] MEDS ORDERED: INSULIN REGULAR IN 0.9 % NACL 100 UNIT in IV 1 EA IV SCH ×8 (05:40→13:15)
[2022-05-21] MEDS ORDERED: INSULIN IV RATE CHANGE DOCUMENTATION ML/HR XX SCH ×2 (05:40→08:45)
[2022-05-21] MEDS ORDERED: SODIUM BICARBONATE 8.4% INJ 50ML SYRINGE IV SCH (06:00)
[2022-05-21 06:45] VITALS: BP 152/66
[2022-05-21] MEDS: KCL 20MEQ IN D5/NS 1000ML 1,000 ML IV SCH ×2 (06:54→10:48)
[2022-05-21 07:41] LABS: VENOUS BASE EXCESS -19.7 (-2.0-2.0); VENOUS HCO3 9.6 MEQ/L (23.0-27.0); VENOUS O2 SATURATION 94.5 % (60.0-80.0); VENOUS PARTIAL PRESSURE CO2 34.1 mmHg (38.0-50.0); VENOUS PARTIAL PRESSURE O2 82.4 mmHg (30.0-50.0); VENOUS PH 7.066 UNITS (7.330-7.430); VENOUS STANDARD HCO3 10.3 MEQ/L; VENOUS TOTAL CO2 10.6 MEQ/L (24.0-28.0)
[2022-05-21 08:00] VITALS: BP 137/73
[2022-05-21 08:13] LABS: OSMOLALITY SERUM 316 MOSM/KG (275-295)
[2022-05-21 08:25] LABS: BLOOD UREA NITROGEN 19 MG/DL (7-18); CALCIUM LEVEL 9.6 MG/DL (8.5-10.1); CARBON DIOXIDE LEVEL 12 MEQ/L (21-32); CHLORIDE LEVEL 110 MEQ/L (98-107); CREATININE FOR GFR 1.28 MG/DL (0.70-1.30); GLOMERULAR FILTRATION RATE > 60.0 (>56); GLUCOSE, FASTING 195 MG/DL (70-100); MAGNESIUM LEVEL 2.3 MG/DL (1.8-2.4); PHOSPHORUS LEVEL 3.7 MG/DL (2.5-4.9); POTASSIUM SERUM 4.4 MEQ/L (3.5-5.1); SODIUM LEVEL 137 MEQ/L (136-145)
[2022-05-21] MEDS ORDERED: LR 1,000 ML IV ONE (09:10)
[2022-05-21] MEDS: PANTOPRAZOLE 40MG VIAL IV SCH (09:45)
[2022-05-21] MEDS: APIXABAN 5 MG TAB (ELIQUIS) PO SCH ×2 (09:45→20:27)
[2022-05-21] MEDS: AMIODARONE 200 MG TAB (PACERONE) PO SCH ×2 (09:45→20:27)
[2022-05-21] MEDS ORDERED: GLUCOSE 4GM CHEW TABLET PO PRN (10:15)
[2022-05-21] MEDS ORDERED: GLUCAGON INJ 1MG VIAL SC PRN (10:15)
[2022-05-21] MEDS ORDERED: DEXTROSE 50% 50 ML SYRINGE IV PRN (10:15)
[2022-05-21 10:17] LABS: VENOUS BASE EXCESS -14.2 (-2.0-2.0); VENOUS HCO3 13.8 MEQ/L (23.0-27.0); VENOUS O2 SATURATION 94.3 % (60.0-80.0); VENOUS PARTIAL PRESSURE CO2 40.1 mmHg (38.0-50.0); VENOUS PARTIAL PRESSURE O2 70.8 mmHg (30.0-50.0); VENOUS PH 7.156 UNITS (7.330-7.430); VENOUS STANDARD HCO3 13.6 MEQ/L; VENOUS TOTAL CO2 15.1 MEQ/L (24.0-28.0)
[2022-05-21 12:00] VITALS: BP 121/73
[2022-05-21 12:35] LABS: BLOOD UREA NITROGEN 19 MG/DL (7-18); CALCIUM LEVEL 8.9 MG/DL (8.5-10.1); CARBON DIOXIDE LEVEL 16 MEQ/L (21-32); CHLORIDE LEVEL 114 MEQ/L (98-107); CREATININE FOR GFR 1.16 MG/DL (0.70-1.30); GLOMERULAR FILTRATION RATE > 60.0 (>56); GLUCOSE, FASTING 134 MG/DL (70-100); POTASSIUM SERUM 4.3 MEQ/L (3.5-5.1); SODIUM LEVEL 142 MEQ/L (136-145)
[2022-05-21] MEDS ORDERED: KCL 20MEQ IN 0.45NS 1000ML 1,000 ML IV SCH (12:35)
[2022-05-21] MEDS ORDERED: KCL 20MEQ IN D5/0.45NS 1000ML 1,000 ML IV SCH (12:45)
[2022-05-21 15:08] LABS: VENOUS BASE EXCESS -9.1 (-2.0-2.0); VENOUS HCO3 18.2 MEQ/L (23.0-27.0); VENOUS PARTIAL PRESSURE CO2 44.2 mmHg (38.0-50.0); VENOUS PARTIAL PRESSURE O2 91.9 mmHg (30.0-50.0); VENOUS PH 7.232 UNITS (7.330-7.430); VENOUS STANDARD HCO3 17.3 MEQ/L; VENOUS TOTAL CO2 19.5 MEQ/L (24.0-28.0)
[2022-05-21 15:48] LABS: BLOOD UREA NITROGEN 15 MG/DL (9-23); CALCIUM LEVEL 8.9 MG/DL (8.5-10.1); CARBON DIOXIDE LEVEL 20 MMOL/L (20-31); CHLORIDE LEVEL 110 MMOL/L (98-107); CREATININE FOR GFR 0.59 MG/DL (0.70-1.30); GLOMERULAR FILTRATION RATE > 60.0 (>56); GLUCOSE, FASTING 106 MG/DL (60-100); POTASSIUM SERUM 4.1 MMOL/L (3.5-5.1); SODIUM LEVEL 143 MMOL/L (136-145)
[2022-05-21 16:00] VITALS: BP 130/82
[2022-05-21] MEDS ORDERED: INSULIN LISPRO (NovoLOG) PER UNIT SC ONE (16:05)
[2022-05-21] MEDS: HumuLIN N INSULIN (NovoLIN N) PER UNIT SC SCH (16:38)
[2022-05-21] MEDS: ACETAMINOPHEN TAB 650MG DOSE (2X325MG) PO PRN (18:09)
[2022-05-21 19:19] LABS: VENOUS BASE EXCESS -5.9 (-2.0-2.0); VENOUS HCO3 21.5 MEQ/L (23.0-27.0); VENOUS O2 SATURATION 93.2 % (60.0-80.0); VENOUS PARTIAL PRESSURE CO2 49.7 mmHg (38.0-50.0); VENOUS PARTIAL PRESSURE O2 66.1 mmHg (30.0-50.0); VENOUS PH 7.254 UNITS (7.330-7.430); VENOUS STANDARD HCO3 19.6 MEQ/L
[2022-05-21 20:00] VITALS: BP 128/66
[2022-05-21 20:05] LABS: BLOOD UREA NITROGEN 13 MG/DL (9-23); CALCIUM LEVEL 8.9 MG/DL (8.5-10.1); CARBON DIOXIDE LEVEL 22 MMOL/L (20-31); CHLORIDE LEVEL 111 MMOL/L (98-107); CREATININE FOR GFR 0.53 MG/DL (0.70-1.30); GLOMERULAR FILTRATION RATE > 60.0 (>56); GLUCOSE, FASTING 100 MG/DL (60-100); POTASSIUM SERUM 3.8 MMOL/L (3.5-5.1); SODIUM LEVEL 143 MMOL/L (136-145)
[2022-05-22] VITALS: BP 120/73
[2022-05-22] MEDS: ACETAMINOPHEN TAB 650MG DOSE (2X325MG) PO PRN ×3 (00:15→17:02)
[2022-05-22 04:00] VITALS: BP 111/65
[2022-05-22 07:24] LABS: ALBUMIN 3.3 G/DL (3.2-5.2); ALT/SGPT 26 U/L (7.0-40); BILIRUBIN,TOTAL 0.4 MG/DL (0.3-1.2); BLOOD UREA NITROGEN 7 MG/DL (9-23); CALCIUM LEVEL 8.9 MG/DL (8.5-10.1); CARBON DIOXIDE LEVEL 20 MMOL/L (20-31); CHLORIDE LEVEL 106 MMOL/L (98-107); CREATININE FOR GFR 0.48 MG/DL (0.70-1.30); GLOMERULAR FILTRATION RATE > 60.0 (>56); GLUCOSE, FASTING 148 MG/DL (60-100); MAGNESIUM LEVEL 1.8 MG/DL (1.8-2.4); POTASSIUM SERUM 3.6 MMOL/L (3.5-5.1); SODIUM LEVEL 140 MMOL/L (136-145); TOTAL PROTEIN 5.7 G/DL
[2022-05-22] MEDS ORDERED: INSULIN LISPRO (NovoLOG) PER UNIT SC SCH ×3 (07:30→21:00)
[2022-05-22 08:00] VITALS: BP 141/75
[2022-05-22] MEDS ORDERED: KCL 20MEQ IN 0.45NS 1000ML 1,000 ML IV SCH (08:50)
[2022-05-22] MEDS ORDERED: GLUCAGON INJ 1MG VIAL SC PRN (08:50)
[2022-05-22] MEDS ORDERED: DEXTROSE 50% 50 ML SYRINGE IV PRN (08:50)
[2022-05-22] MEDS ORDERED: GLUCOSE 4GM CHEW TABLET PO PRN (08:50)
[2022-05-22] MEDS: PANTOPRAZOLE 40MG VIAL IV SCH (08:55)
[2022-05-22] MEDS: APIXABAN 5 MG TAB (ELIQUIS) PO SCH ×2 (08:55→20:09)
[2022-05-22] MEDS: AMIODARONE 200 MG TAB (PACERONE) PO SCH ×2 (08:55→20:09)
[2022-05-22] MEDS: ONDANSETRON 4MG 2ML VIAL IV PRN ×2 (08:55→19:36)
[2022-05-22] MEDS: HumuLIN N INSULIN (NovoLIN N) PER UNIT SC SCH (08:56)
[2022-05-22] MEDS ORDERED: INSULIN REGULAR IN 0.9 % NACL 100 UNIT in IV 1 EA IV SCH ×2 (10:00)
[2022-05-22] MEDS: KCL 20MEQ IN D5/0.45NS 1000ML 1,000 ML IV SCH ×2 (10:00→15:58)
[2022-05-22] MEDS: IBUPROFEN 600MG TAB PO PRN (10:59)
[2022-05-22 11:20] LABS: BLOOD UREA NITROGEN 9 MG/DL (9-23); CALCIUM LEVEL 9.1 MG/DL (8.5-10.1); CARBON DIOXIDE LEVEL 19 MMOL/L (20-31); CHLORIDE LEVEL 105 MMOL/L (98-107); CREATININE FOR GFR 0.48 MG/DL (0.70-1.30); GLOMERULAR FILTRATION RATE > 60.0 (>56); GLUCOSE, FASTING 170 MG/DL (60-100); POTASSIUM SERUM 3.8 MMOL/L (3.5-5.1); SODIUM LEVEL 140 MMOL/L (136-145)
[2022-05-22 12:00] VITALS: BP 131/72
[2022-05-22] MEDS: INSULIN IV RATE CHANGE DOCUMENTATION ML/HR XX SCH ×2 (12:15→14:05)
[2022-05-22 12:37] LABS: VENOUS BASE EXCESS -2.9 (-2.0-2.0); VENOUS HCO3 21.8 MEQ/L (23.0-27.0); VENOUS O2 SATURATION 99.3 % (60.0-80.0); VENOUS PARTIAL PRESSURE CO2 37.7 mmHg (38.0-50.0); VENOUS PARTIAL PRESSURE O2 225.4 mmHg (30.0-50.0); VENOUS STANDARD HCO3 22.1 MEQ/L
[2022-05-22 13:11] LABS: BLOOD UREA NITROGEN 8 MG/DL (9-23); CALCIUM LEVEL 8.9 MG/DL (8.5-10.1); CARBON DIOXIDE LEVEL 24 MMOL/L (20-31); CHLORIDE LEVEL 107 MMOL/L (98-107); CREATININE FOR GFR 0.48 MG/DL (0.70-1.30); GLOMERULAR FILTRATION RATE > 60.0 (>56); GLUCOSE, FASTING 103 MG/DL (60-100); POTASSIUM SERUM 3.6 MMOL/L (3.5-5.1); SODIUM LEVEL 141 MMOL/L (136-145)
[2022-05-22 15:25] LABS: VENOUS BASE EXCESS -1.9 (-2.0-2.0); VENOUS HCO3 23.3 MEQ/L (23.0-27.0); VENOUS O2 SATURATION 99.2 % (60.0-80.0); VENOUS PARTIAL PRESSURE CO2 41.3 mmHg (38.0-50.0); VENOUS PH 7.369 UNITS (7.330-7.430); VENOUS STANDARD HCO3 22.9 MEQ/L; VENOUS TOTAL CO2 24.6 MEQ/L (24.0-28.0)
[2022-05-22 16:00] VITALS: BP 131/72
[2022-05-22 16:05] LABS: BLOOD UREA NITROGEN 7 MG/DL (9-23); CALCIUM LEVEL 8.6 MG/DL (8.5-10.1); CARBON DIOXIDE LEVEL 26 MMOL/L (20-31); CHLORIDE LEVEL 105 MMOL/L (98-107); CREATININE FOR GFR 0.45 MG/DL (0.70-1.30); GLOMERULAR FILTRATION RATE > 60.0 (>56); GLUCOSE, FASTING 88 MG/DL (60-100); POTASSIUM SERUM 3.7 MMOL/L (3.5-5.1); SODIUM LEVEL 140 MMOL/L (136-145)
[2022-05-22 20:00] VITALS: BP 113/75
[2022-05-22] MEDS: LEVEMIR (INSULIN DETEMIR) 1 UNITS/0.01ML SC SCH (21:00)
[2022-05-22] MEDS ORDERED: LEVEMIR (INSULIN DETEMIR) 1 UNITS/0.01ML SC ONE (21:35)
[2022-05-23] VITALS: BP 132/78
[2022-05-23 04:00] VITALS: BP 125/69
[2022-05-23] MEDS: ONDANSETRON 4MG 2ML VIAL IV PRN (04:56)
[2022-05-23 05:01] LABS: HEMATOCRIT 38.1 % (42.0-52.0); HEMOGLOBIN 12.1 g/dl (13.5-17.5); MEAN CORPUSCULAR HEMOGLOBIN 29.4 pg (27.0-33.0); MEAN CORPUSCULAR HGB CONC 31.8 g/dl (32.0-36.5); MEAN CORPUSCULAR VOLUME 92.5 fl (80.0-96.0); PLATELET COUNT, AUTOMATED 211 10^3/uL (150-450); RED BLOOD COUNT 4.12 10^6/uL (4.30-6.10); WHITE BLOOD COUNT 5.2 10^3/uL (4.0-10.0)
[2022-05-23 06:11] LABS: ALBUMIN 3.1 G/DL (3.2-5.2); ALT/SGPT 27 U/L (7.0-40); BILIRUBIN,TOTAL 0.5 MG/DL (0.3-1.2); BLOOD UREA NITROGEN 8 MG/DL (9-23); CALCIUM LEVEL 8.8 MG/DL (8.5-10.1); CARBON DIOXIDE LEVEL 28 MMOL/L (20-31); CHLORIDE LEVEL 102 MMOL/L (98-107); CREATININE FOR GFR 0.49 MG/DL (0.70-1.30); GLOMERULAR FILTRATION RATE > 60.0 (>56); GLUCOSE, FASTING 104 MG/DL (60-100); SODIUM LEVEL 141 MMOL/L (136-145); TOTAL PROTEIN 5.4 G/DL (5.7-8.2)
[2022-05-23 08:00] VITALS: BP 131/92
[2022-05-23] MEDS: APIXABAN 5 MG TAB (ELIQUIS) PO SCH ×2 (08:47→20:20)
[2022-05-23] MEDS: PANTOPRAZOLE 40MG VIAL IV SCH (08:48)
[2022-05-23] MEDS: AMIODARONE 200 MG TAB (PACERONE) PO SCH ×2 (08:48→20:20)
[2022-05-23] MEDS: LEVEMIR (INSULIN DETEMIR) 1 UNITS/0.01ML SC SCH ×2 (08:49→20:21)
[2022-05-23] MEDS: ACETAMINOPHEN TAB 650MG DOSE (2X325MG) PO PRN (11:01)
[2022-05-23] MEDS ORDERED: SIMETHICONE 80MG CHEW TAB PO PRN (11:30)
[2022-05-23] MEDS ORDERED: METOCLOPRAMIDE 10MG TAB PO SCH (12:00)
[2022-05-23 12:28] VITALS: BP 133/88
[2022-05-23] MEDS: METOCLOPRAMIDE 10MG TAB PO SCH ×2 (12:37→17:27)
[2022-05-23] MEDS: INSULIN LISPRO (NovoLOG) PER UNIT SC SCH ×3 (12:37→20:08)
[2022-05-23] MEDS ORDERED: NS 1,000 ML IV SCH (12:45)
[2022-05-23] MEDS: SUCRALFATE 1 GM TAB PO SCH ×2 (13:42→17:27)
[2022-05-23] MEDS: FLUDROCORTISONE ACETATE 0.1 MG TAB PO SCH (15:07)
[2022-05-23 16:45] VITALS: BP 120/82
[2022-05-23] MEDS: ROSUVASTATIN 10 MG TAB (CRESTOR) PO SCH (20:20)
[2022-05-23] MEDS: GABAPENTIN 300 MG CAP PO SCH (20:20)
[2022-05-23 22:00] VITALS: BP 118/82
[2022-05-24 06:00] VITALS: BP 139/98
[2022-05-24] MEDS: AMIODARONE 200 MG TAB (PACERONE) PO SCH ×2 (09:00→19:02)
[2022-05-24] MEDS: APIXABAN 5 MG TAB (ELIQUIS) PO SCH ×2 (09:00→19:02)
[2022-05-24] MEDS: ACETAMINOPHEN TAB 650MG DOSE (2X325MG) PO PRN ×2 (09:00→19:03)
[2022-05-24] MEDS: ESCITALOPRAM OXALATE 10 MG TAB (LEXAPRO) PO SCH (09:00)
[2022-05-24] MEDS: PANTOPRAZOLE 40MG TAB (PROTONIX) PO SCH (09:00)
[2022-05-24] MEDS: SUCRALFATE 1 GM TAB PO SCH ×3 (09:00→17:44)
[2022-05-24] MEDS: METOCLOPRAMIDE 10MG TAB PO SCH ×3 (09:00→17:44)
[2022-05-24] MEDS: FLUDROCORTISONE ACETATE 0.1 MG TAB PO SCH (09:00)
[2022-05-24] MEDS: GABAPENTIN 300 MG CAP PO SCH ×2 (09:00→19:02)
[2022-05-24] MEDS: LEVEMIR (INSULIN DETEMIR) 1 UNITS/0.01ML SC SCH ×2 (09:01→19:03)
[2022-05-24] MEDS: INSULIN LISPRO (NovoLOG) PER UNIT SC SCH ×4 (09:02→18:58)
[2022-05-24 14:00] VITALS: BP 108/59
[2022-05-24] MEDS: ROSUVASTATIN 10 MG TAB (CRESTOR) PO SCH (19:02)
[2022-05-24] MEDS: IBUPROFEN 600MG TAB PO PRN (23:45)
[2022-05-25 06:04] VITALS: BP 126/82
[2022-05-25] MEDS: SUCRALFATE 1 GM TAB PO SCH ×3 (08:37→18:38)
[2022-05-25] MEDS: AMIODARONE 200 MG TAB (PACERONE) PO SCH ×2 (08:37→21:35)
[2022-05-25] MEDS: GABAPENTIN 300 MG CAP PO SCH ×2 (08:37→21:35)
[2022-05-25] MEDS: ACETAMINOPHEN TAB 650MG DOSE (2X325MG) PO PRN ×2 (08:37→18:38)
[2022-05-25] MEDS: PANTOPRAZOLE 40MG TAB (PROTONIX) PO SCH (08:37)
[2022-05-25] MEDS: METOCLOPRAMIDE 10MG TAB PO SCH ×3 (08:38→18:38)
[2022-05-25] MEDS: FLUDROCORTISONE ACETATE 0.1 MG TAB PO SCH (08:38)
[2022-05-25] MEDS: APIXABAN 5 MG TAB (ELIQUIS) PO SCH ×2 (08:38→21:35)
[2022-05-25] MEDS: ESCITALOPRAM OXALATE 10 MG TAB (LEXAPRO) PO SCH (08:38)
[2022-05-25] MEDS: INSULIN LISPRO (NovoLOG) PER UNIT SC SCH ×4 (08:38→21:00)
[2022-05-25] MEDS: LEVEMIR (INSULIN DETEMIR) 1 UNITS/0.01ML SC SCH ×2 (08:39→21:36)
[2022-05-25] MEDS: IBUPROFEN 600MG TAB PO PRN (12:13)
[2022-05-25 14:00] VITALS: BP 127/81
[2022-05-25 21:00] VITALS: BP 126/80
[2022-05-25] MEDS: ROSUVASTATIN 10 MG TAB (CRESTOR) PO SCH (21:35)
[2022-05-26] MEDS: IBUPROFEN 600MG TAB PO PRN ×2 (00:22→13:25)
[2022-05-26 06:47] VITALS: BP 125/73
[2022-05-26] MEDS: APIXABAN 5 MG TAB (ELIQUIS) PO SCH ×2 (09:32→21:17)
[2022-05-26] MEDS: METOCLOPRAMIDE 10MG TAB PO SCH ×3 (09:32→17:48)
[2022-05-26] MEDS: ESCITALOPRAM OXALATE 10 MG TAB (LEXAPRO) PO SCH (09:32)
[2022-05-26] MEDS: FLUDROCORTISONE ACETATE 0.1 MG TAB PO SCH (09:32)
[2022-05-26] MEDS: SUCRALFATE 1 GM TAB PO SCH ×3 (09:33→17:48)
[2022-05-26] MEDS: AMIODARONE 200 MG TAB (PACERONE) PO SCH ×2 (09:33→21:17)
[2022-05-26] MEDS: GABAPENTIN 300 MG CAP PO SCH ×2 (09:33→21:17)
[2022-05-26] MEDS: ACETAMINOPHEN TAB 650MG DOSE (2X325MG) PO PRN ×2 (09:33→21:18)
[2022-05-26] MEDS: PANTOPRAZOLE 40MG TAB (PROTONIX) PO SCH (09:33)
[2022-05-26] MEDS: LEVEMIR (INSULIN DETEMIR) 1 UNITS/0.01ML SC SCH ×2 (09:33→21:17)
[2022-05-26] MEDS: INSULIN LISPRO (NovoLOG) PER UNIT SC SCH ×4 (09:34→21:00)
[2022-05-26 14:00] VITALS: BP 126/77
[2022-05-26] MEDS: ROSUVASTATIN 10 MG TAB (CRESTOR) PO SCH (21:17)
[2022-05-27 05:46] VITALS: BP 124/75
[2022-05-27] MEDS: INSULIN LISPRO (NovoLOG) PER UNIT SC SCH ×4 (07:30→20:52)
[2022-05-27] MEDS: ESCITALOPRAM OXALATE 10 MG TAB (LEXAPRO) PO SCH (08:03)
[2022-05-27] MEDS: APIXABAN 5 MG TAB (ELIQUIS) PO SCH ×2 (08:03→20:51)
[2022-05-27] MEDS: SUCRALFATE 1 GM TAB PO SCH ×3 (08:03→17:43)
[2022-05-27] MEDS: PANTOPRAZOLE 40MG TAB (PROTONIX) PO SCH (08:03)
[2022-05-27] MEDS: GABAPENTIN 300 MG CAP PO SCH ×2 (08:03→20:51)
[2022-05-27] MEDS: ACETAMINOPHEN TAB 650MG DOSE (2X325MG) PO PRN ×2 (08:03→20:54)
[2022-05-27] MEDS: FLUDROCORTISONE ACETATE 0.1 MG TAB PO SCH (08:03)
[2022-05-27] MEDS: METOCLOPRAMIDE 10MG TAB PO SCH ×3 (08:03→17:43)
[2022-05-27] MEDS: AMIODARONE 200 MG TAB (PACERONE) PO SCH ×2 (08:03→20:51)
[2022-05-27] MEDS: LEVEMIR (INSULIN DETEMIR) 1 UNITS/0.01ML SC SCH ×2 (08:04→20:51)
[2022-05-27] MEDS: IBUPROFEN 600MG TAB PO PRN (11:15)
[2022-05-27] MEDS: ROSUVASTATIN 10 MG TAB (CRESTOR) PO SCH (20:51)
[2022-05-28 06:00] VITALS: BP 123/68
[2022-05-28] MEDS: METOCLOPRAMIDE 10MG TAB PO SCH ×2 (06:19→12:10)
[2022-05-28] MEDS: AMIODARONE 200 MG TAB (PACERONE) PO SCH (07:56)
[2022-05-28] MEDS: GABAPENTIN 300 MG CAP PO SCH (07:56)
[2022-05-28] MEDS: PANTOPRAZOLE 40MG TAB (PROTONIX) PO SCH (07:56)
[2022-05-28] MEDS: SUCRALFATE 1 GM TAB PO SCH ×2 (07:56→12:10)
[2022-05-28] MEDS: ESCITALOPRAM OXALATE 10 MG TAB (LEXAPRO) PO SCH (07:56)
[2022-05-28] MEDS: APIXABAN 5 MG TAB (ELIQUIS) PO SCH (07:56)
[2022-05-28] MEDS: LEVEMIR (INSULIN DETEMIR) 1 UNITS/0.01ML SC SCH (07:57)
[2022-05-28] MEDS: ACETAMINOPHEN TAB 650MG DOSE (2X325MG) PO PRN (07:57)
[2022-05-28] MEDS: FLUDROCORTISONE ACETATE 0.1 MG TAB PO SCH (07:57)
[2022-05-28] MEDS: INSULIN LISPRO (NovoLOG) PER UNIT SC SCH ×2 (07:57→12:11)
[2022-05-28] MEDS ORDERED: METF-838 PO ×4 (11:08→17:20)
[2022-05-28] MEDS ORDERED: METF500T13 PO (17:07)
== END 2022-05-28 14:22 | disposition home health service (06) | DRG 420 ==
LOC: M ED 20:41 → M ED INP 05-21 05:44 → ENRESERV 05-21 05:56 → M ICU 05-21 06:45 → M MSPAV 05-23 18:22
PROVIDERS: ADMIT Family Medicine; ATTEND Internal Medicine
DX: E11.10 Type 2 diabetes mellitus with ketoacidosis without coma (principal); N17.9 Acute kidney failure, unspecified; E27.40 Unspecified adrenocortical insufficiency; I48.92 Unspecified atrial flutter; E83.42 Hypomagnesemia; K31.84 Gastroparesis; I48.91 Unspecified atrial fibrillation; E86.0 Dehydration; F32.A Depression, unspecified; R26.89 Other abnormalities of gait and mobility; Z98.49 Cataract extraction status, unspecified eye; E78.5 Hyperlipidemia, unspecified; Z20.822 Contact with and (suspected) exposure to COVID-19; Z79.01 Long term (current) use of anticoagulants; Z79.4 Long term (current) use of insulin; Z79.899 Other long term (current) drug therapy; K21.9 Gastro-esophageal reflux disease without esophagitis; E11.42 Type 2 diabetes mellitus with diabetic polyneuropathy; E11.43 Type 2 diabetes mellitus with diabetic autonomic (poly)neuropathy

== ENCOUNTER → 2022-05-20 | Outpatient (CLI) | payer OTHER ==
[~2022-05-20] MED LIST changes: +ADME100I SC; +CARA1TAB6 PO; +INSU100I36 SC; +MAGN400T35 PO; +POTA10TA67 PO; +SIME80CH5 PO; +STEG15TA PO
== END ==
LOC: M LABSMTC 12:04
PROVIDERS: ATTEND Anesthesiology
DX: Z01.812 Encounter for preprocedural laboratory examination (principal); Z11.52 Encounter for screening for COVID-19

== ENCOUNTER 2023-02-16 13:50 | Inpatient (IN) | payer OTHER ==
[~2023-02-16] VITALS: Ht 193 cm; Wt 126.5 kg
[~2023-02-16 13:50] MED LIST changes: +ADME100I SC; +CARA1TAB6 PO; +DULO1CAP4 PO; +FOLI1TAB11 PO; +INSU100I36 SC; +MAGN400T33 PO; +MAGN400T35 PO; +METF500T13 PO; +POTA10CA60 PO; +POTA10TA67 PO; +PREG50CA2 PO; +SIME80CH5 PO; +STEG15TA PO
[2023-02-16] MEDS ORDERED: NS 1,000 ML IV ONE (14:05)
[2023-02-16] MEDS ORDERED: ONDANSETRON 4MG 2ML VIAL IV ONE (14:20)
[2023-02-16 14:37] LABS: BASO # 0.1 10^3/uL (0.0-0.2); BASO % 0.7 % (0.0-1.0); EOS # 0.1 10^3/uL (0.0-0.5); EOS % 0.9 % (0.0-3.0); HEMATOCRIT 47.1 % (42.0-52.0); LYMPH # 1.5 10^3/uL (1.5-5.0); LYMPH % 13.7 % (24.0-44.0); MEAN CORPUSCULAR HEMOGLOBIN 29.1 pg (27.0-33.0); MEAN CORPUSCULAR HGB CONC 32.7 g/dl (32.0-36.5); MONO # 0.6 10^3/uL (0.0-0.8); MONO % 5.8 % (2.0-8.0); NEUTROPHILS # 8.4 10^3/uL (1.5-8.5); NEUTROPHILS % 78.4 % (36.0-66.0); PLATELET COUNT, AUTOMATED 224 10^3/uL (150-450); RED BLOOD COUNT 5.29 10^6/uL (4.30-6.10); WHITE BLOOD COUNT 10.7 10^3/uL (4.0-10.0)
[2023-02-16 14:40] LABS: HEMOGLOBIN 15.4 g/dl (13.5-17.5)
[2023-02-16] MEDS: METOPROLOL 5 MG/5 ML VIAL IV SCH ×3 (14:42→15:01)
[2023-02-16 14:43] LABS: VENOUS BASE EXCESS 0.4 (-2.0-2.0); VENOUS HCO3 27.5 MMOL/L (23.0-27.0); VENOUS PARTIAL PRESSURE CO2 53.8 mmHg (38.0-50.0); VENOUS PARTIAL PRESSURE O2 29.9 mmHg (30.0-50.0); VENOUS PH 7.327 UNITS (7.330-7.430); VENOUS STANDARD HCO3 23.7 MMOL/L; VENOUS TOTAL CO2 29.2 MMOL/L (24.0-28.0)
[2023-02-16 14:54] LABS: INR 1.21; PROTHROMBIN TIME 14.9 SECONDS (12.5-14.5)
[2023-02-16 14:55] LABS: PARTIAL THROMBOPLASTIN TIME 28.4 SECONDS (24.8-34.2)
[2023-02-16 15:01] LABS: CK-MB VALUE MASS < 1.0 NG/ML (<3.6); LIPASE 35 U/L (12-53)
[2023-02-16 15:03] LABS: ALBUMIN 4.1 G/DL (3.2-5.2); ALKALINE PHOSPHATASE 66 U/L (46-116); ALT/SGPT 17 U/L (7.0-40); AST/SGOT 13 U/L (<34); BILIRUBIN,DIRECT 0.2 MG/DL (<0.4); BILIRUBIN,TOTAL 0.5 MG/DL (0.3-1.2); BLOOD UREA NITROGEN 16 MG/DL (9-23); CALCIUM LEVEL 9.4 MG/DL (8.5-10.1); CARBON DIOXIDE LEVEL 30 MMOL/L (20-31); CHLORIDE LEVEL 101 MMOL/L (98-107); CPK CREATINE PHOSPHOKINASE 100 U/L (46-171); CREATININE FOR GFR 0.87 MG/DL (0.70-1.30); GLOMERULAR FILTRATION RATE > 60.0 (>56); GLUCOSE, FASTING 191 MG/DL (60-100); HEMOGLOBIN A1c 6.2 % (4.0-6.0); POTASSIUM SERUM 4.3 MMOL/L (3.5-5.1); SODIUM LEVEL 139 MMOL/L (136-145); TOTAL PROTEIN 6.8 G/DL (5.7-8.2)
[2023-02-16 15:04] LABS: ACETONE/KETONE 0.82 MMOL/L (0.02-0.27)
[2023-02-16 15:05] LABS: THYROID STIMULATING HORMONE 12.202 uIU/ML (0.55-4.78)
[2023-02-16 15:09] LABS: OSMOLALITY SERUM 299 MOSM/KG (275-295)
[2023-02-16] MEDS ORDERED: METOPROLOL TART 50 MG TAB PO ONE (15:10)
[2023-02-16 16:27] LABS: CK-MB VALUE MASS < 1.0 NG/ML (<3.6)
[2023-02-16 16:28] LABS: CPK CREATINE PHOSPHOKINASE 124 U/L (46-171)
[2023-02-16] MEDS ORDERED: MED REC IN PROGRESS XX SCH (17:50)
[2023-02-16] MEDS ORDERED: GLUCOSE 4GM CHEW TABLET PO PRN (18:15)
[2023-02-16] MEDS ORDERED: ACETAMINOPHEN TAB 650MG DOSE (2X325MG) PO PRN (18:15)
[2023-02-16] MEDS ORDERED: DEXTROSE 50% 50ML SYRINGE IV PRN (18:15)
[2023-02-16] MEDS ORDERED: MOM 30ML SUSPENSION UDC PO PRN (18:15)
[2023-02-16] MEDS ORDERED: GLUCAGON INJ 1MG VIAL SC PRN (18:15)
[2023-02-16] MEDS ORDERED: INSU100I38 INJ (19:34)
[2023-02-16] MEDS ORDERED: METF500T13 PO (19:36)
[2023-02-16] MEDS ORDERED: HOME MED LIST COMPLETE! XX SCH (19:40)
[2023-02-16 20:58] VITALS: BP 118/78; TEMP 97.2; O2SAT 97
[2023-02-16] MEDS ORDERED: INSULIN LISPRO (NovoLOG) PER UNIT SC SCH (21:00)
[2023-02-16] MEDS ORDERED: ROSUVASTATIN 10 MG TAB (CRESTOR) PO SCH (21:00)
[2023-02-16] MEDS: DOCUSATE SODIUM 100MG CAPSULE PO SCH (21:00)
[2023-02-16] MEDS ORDERED: CYCLOBENZAPRINE 5MG TABLET PO PRN (22:50)
[2023-02-16] MEDS ORDERED: SIMETHICONE 80MG CHEW TAB PO PRN (22:50)
[2023-02-16] MEDS ORDERED: METOCLOPRAMIDE 10MG TAB PO PRN (22:50)
[2023-02-16 23:11] VITALS: BP 115/73; TEMP 97.9; O2SAT 93
[2023-02-16] MEDS: APIXABAN 5 MG TAB (ELIQUIS) PO SCH (23:42)
[2023-02-16] MEDS: LEVEMIR (INSULIN DETEMIR) 1 UNITS/0.01ML SC SCH (23:42)
[2023-02-17] VITALS (10 sets, daily range): BP systolic 92–135; BP diastolic 54–89; TEMP 97.1–97.6; O2SAT 93–95
[2023-02-17 05:37] LABS: HEMATOCRIT 43.4 % (42.0-52.0); MEAN CORPUSCULAR HGB CONC 32.3 g/dl (32.0-36.5); MEAN CORPUSCULAR VOLUME 89.9 fl (80.0-96.0); PLATELET COUNT, AUTOMATED 196 10^3/uL (150-450); RED BLOOD COUNT 4.83 10^6/uL (4.30-6.10); WHITE BLOOD COUNT 7.7 10^3/uL (4.0-10.0)
[2023-02-17] MEDS ORDERED: LEVOTHYROXINE 75MCG TABLET (0.075MG) PO SCH (06:00)
[2023-02-17 06:01] LABS: BLOOD UREA NITROGEN 17 MG/DL (9-23); CALCIUM LEVEL 8.9 MG/DL (8.5-10.1); CARBON DIOXIDE LEVEL 30 MMOL/L (20-31); CHLORIDE LEVEL 103 MMOL/L (98-107); CREATININE FOR GFR 0.71 MG/DL (0.70-1.30); GLOMERULAR FILTRATION RATE > 60.0 (>56); GLUCOSE, FASTING 138 MG/DL (60-100); SODIUM LEVEL 140 MMOL/L (136-145)
[2023-02-17] MEDS ORDERED: LR 1,000 ML IV ONE (07:25)
[2023-02-17] MEDS ORDERED: FLUDROCORTISONE ACETATE 0.1 MG TAB PO SCH (09:00)
[2023-02-17] MEDS ORDERED: DULoxetine 20MG CAP (CYMBALTA) PO SCH (09:00)
[2023-02-17] MEDS ORDERED: FOLIC ACID 1MG TAB PO SCH (09:00)
[2023-02-17] MEDS ORDERED: POTASSIUM CHLORIDE 10MEQ SR TABLET PO SCH (09:00)
[2023-02-17] MEDS ORDERED: MAGNESIUM OXIDE 400MG TAB (MAG-OX) PO SCH (09:00)
[2023-02-17] MEDS ORDERED: PANTOPRAZOLE 40MG TAB (PROTONIX) PO SCH (09:00)
[2023-02-17] MEDS: LEVEMIR (INSULIN DETEMIR) 1 UNITS/0.01ML SC SCH (09:56)
[2023-02-17] MEDS: INSULIN LISPRO (NovoLOG) PER UNIT SC SCH ×2 (09:56→12:49)
[2023-02-17] MEDS: PREGABALIN 50 MG CAP (LYRICA) PO SCH ×2 (09:57→16:12)
[2023-02-17] MEDS: APIXABAN 5 MG TAB (ELIQUIS) PO SCH (09:57)
[2023-02-17] MEDS: DOCUSATE SODIUM 100MG CAPSULE PO SCH (09:57)
[2023-02-17] MEDS: SUCRALFATE 1 GM TAB PO SCH ×2 (10:06→12:49)
[2023-02-17] MEDS ORDERED: METO1TAB87 PO (13:49)
[2023-02-17] MEDS ORDERED: METOPROLOL TART 25 MG TABLET PO ONE (13:50)
[2023-02-17] MEDS ORDERED: LEVO50TA5 PO (13:57)
== END 2023-02-17 16:54 | disposition home or self-care (01) | DRG 201 ==
LOC: M ED 13:50 → M ED INP 18:13 → ENRESERV 19:53 → M PCU 20:50
PROVIDERS: ADMIT Student in an Organized Health Care Education/Training Program; ATTEND Student in an Organized Health Care Education/Training Program
DX: I48.91 Unspecified atrial fibrillation (principal); I50.32 Chronic diastolic (congestive) heart failure; E11.42 Type 2 diabetes mellitus with diabetic polyneuropathy; E11.43 Type 2 diabetes mellitus with diabetic autonomic (poly)neuropathy; K31.84 Gastroparesis; I95.1 Orthostatic hypotension; E03.9 Hypothyroidism, unspecified; K21.9 Gastro-esophageal reflux disease without esophagitis; E78.5 Hyperlipidemia, unspecified; Z79.01 Long term (current) use of anticoagulants; Z79.890 Hormone replacement therapy; Z79.84 Long term (current) use of oral hypoglycemic drugs; Z79.899 Other long term (current) drug therapy; Z79.4 Long term (current) use of insulin; Z20.822 Contact with and (suspected) exposure to COVID-19; Z20.7 Contact with and (suspected) exposure to pediculosis, acariasis and other infestations

== ENCOUNTER → 2024-04-05 | Outpatient (CLI) | payer MEDICAID, MEDICARE, OTHER ==
[~2024-04-05] MED LIST changes: +GLIP5TAB17 PO; -GLIP5TAB8 PO; -INSU100I36 INJ; -INSU100I36 SC; +INSU100I38 INJ; +INSU100I60 INJ; +INSU100I60 SC; +LEVO50TA5 PO; +METO1TAB87 PO; -POTA10CA60 PO; +POTA10CA70 PO; -PREG50CA2 PO; +PREG50CA3 PO; -ROSU10TA6 PO; +ROSU10TA61 PO
== END ==
LOC: M WHC 12:29
DX: R20.0 Anesthesia of skin (principal)